=== PATIENT | female | born 1995 | race Caucasian/White ===

== ENCOUNTER → 2019-10-17 10:47 | Outpatient (BNVA) | payer OTHER, SELFPAY | PROVIDERS: Family Provider Family Medicine; PCP Family Medicine; Visit Provider Nurse Practitioner | DX: M25.519 Pain in unspecified shoulder (principal) | CPT/HCPCS: 73030 ==

== ENCOUNTER 2019-10-27 14:36 | Outpatient (RCR) | payer OTHER, SELFPAY | END 2019-11-11 23:59 | disposition home or self-care (01) | LOC: SPT 14:36 | PROVIDERS: Family Provider Family Medicine; PCP Family Medicine; Referring Provider Family Medicine; Visit Provider Family Medicine | DX: S43.422D Sprain of left rotator cuff capsule, subsequent encounter (principal); X58.XXXD Exposure to other specified factors, subsequent encounter | CPT/HCPCS: 97110; 97161; 97530 ==

== ENCOUNTER 2019-11-12 06:00 | Outpatient (RCR) | payer OTHER, SELFPAY | END 2019-12-10 23:59 | disposition home or self-care (01) | LOC: SPT 06:00 | PROVIDERS: Family Provider Family Medicine; PCP Family Medicine; Referring Provider Family Medicine; Visit Provider Family Medicine | DX: S43.422D Sprain of left rotator cuff capsule, subsequent encounter (principal); X58.XXXD Exposure to other specified factors, subsequent encounter | CPT/HCPCS: 97110 ==

== ENCOUNTER 2019-12-21 11:25 | Outpatient (CLI) | payer OTHER, SELFPAY ==
--- NOTE | 2019-12-21 11:35 | XR_ITS ---
WS: [id number] RIGHT SHOULDER: 3 VIEW(S) TECHNIQUE: Internal and external rotation with Y view. HISTORY: right shoulder injury COMPARISON: None available. No fracture or dislocation or soft tissue abnormality. Glenohumeral and AC joints are unremarkable. XR/XR shoulder RT min 2V* [id number] IMPRESSION: Normal RIGHT shoulder.
== END 2019-12-21 11:26 | disposition home or self-care (01) ==
LOC: RADWPI 11:27
PROVIDERS: Family Provider Family Medicine; PCP Family Medicine; Visit Provider Family Medicine
DX: S43.401A Unspecified sprain of right shoulder joint, initial encounter (principal); X58.XXXA Exposure to other specified factors, initial encounter
CPT/HCPCS: 73030

== ENCOUNTER 2019-12-28 12:31 | Outpatient (RCR) | payer OTHER, SELFPAY | END 2020-01-10 23:59 | disposition home or self-care (01) | LOC: SPT 12:31 | PROVIDERS: Family Provider Family Medicine; PCP Family Medicine; Referring Provider Family Medicine; Visit Provider Family Medicine | DX: S43.401D Unspecified sprain of right shoulder joint, subsequent encounter (principal); X58.XXXD Exposure to other specified factors, subsequent encounter | CPT/HCPCS: 97161 ==

== ENCOUNTER → 2020-06-11 08:15 | Day surgery (SDC) | payer MEDICAID, SELFPAY ==
[2020-06-11 08:30] VITALS: BP 104/60; PULSE 66; RESP 18; TEMP 36.2; O2SAT 99
[2020-06-11 09:52] VITALS: BP 144/97; PULSE 78; RESP 18; TEMP 36.4; O2SAT 99
== END ==
PROVIDERS: PCP Family Medicine; Visit Provider Family Medicine
DX: O26.899 Other specified pregnancy related conditions, unspecified trimester (principal); Z67.91 Unspecified blood type, Rh negative
CPT/HCPCS: 86850; 86900; 90384; 96372

== ENCOUNTER 2020-06-13 14:45 | Outpatient (CLI) | payer MEDICAID, SELFPAY ==
[2020-06-13 14:45] VITALS: BMI 22.4
[2020-06-13 15:41] VITALS: BP 99/62
[2020-06-13 15:42] VITALS: PULSE 81
== END 2020-06-13 15:49 | disposition home or self-care (01) ==
LOC: OPOB 14:50 → OBGYN 14:51
PROVIDERS: PCP Family Medicine; Visit Provider Family Medicine
DX: O36.8190 Decreased fetal movements, unspecified trimester, not applicable or unspecified (principal)
CPT/HCPCS: 59025; 99211

== ENCOUNTER 2020-08-27 11:45 | Outpatient (CLI) | payer MEDICAID, SELFPAY ==
[2020-08-27 11:45] VITALS: TEMP 36.7
[2020-08-27 11:54] VITALS: BP 127/70; PULSE 83
[2020-08-27 11:59] VITALS: BMI 23.9
[2020-08-27 12:14] VITALS: BP 106/69; PULSE 69
[2020-08-27 12:15] LABS: Nitrazine Paper, PH Negative
[2020-08-27 12:19] VITALS: BP 106/69; PULSE 69; RESP 18; TEMP 36.7
== END 2020-08-27 12:25 | disposition home or self-care (01) ==
LOC: OBGYN 12:18 → OPOB 08-28 08:52
PROVIDERS: PCP Family Medicine; Visit Provider Family Medicine
DX: O26.899 Other specified pregnancy related conditions, unspecified trimester (principal)
CPT/HCPCS: 59025; 83986; 99211; G0378; G0379

== ENCOUNTER 2020-08-31 00:06 | Inpatient (IN) | payer MEDICAID, SELFPAY ==
[2020-08-30 21:01] VITALS: BMI 23.9
[2020-08-30 21:35] VITALS: TEMP 36.8
[2020-08-30] MEDS: dextrose 5%-lactated ringers 1,000 ML 125 ML IV (22:03)
[2020-08-30] MEDS: oxytocin 30 UNIT/500 ML BAG IV (22:04)
[2020-08-30 23:23] LABS: Amphetamines Screen Urine Negative (Negative); Barbiturates Screen Urine Negative (Negative); Benzodiazepines Screen Urine Negative (Negative); Cocaine Screen Urine Negative (Negative); Opiate Screen Urine Negative (Negative); PCP Screen Urine Negative (Negative); THC Screen Urine Negative (Negative)
[2020-08-31] VITALS (18 sets, daily range): BP systolic 0–137; BP diastolic 0–84; PULSE 66–118; RESP 16–18; TEMP 36.7–36.9; O2SAT 98
[2020-08-31] MEDS: fentaNYL 50 mcg/mL INJ 2mL IV (05:33)
[2020-08-31] MEDS: lactated ringers 1,000 ML 999 ML IV (05:40)
[2020-08-31 06:04] LABS: Basophils % 0.3 %; Eosinophils # 0.1 10^3/uL (0.0-0.8); Eosinophils % 0.7 %; Hematocrit 36.7 % (37.0-47.0); Hemoglobin 12.2 g/dL (11.5-15.3); Lymphocytes # 2.7 10^3/uL (0.8-4.8); Lymphocytes % 22.9 %; Mean Corpuscular HGB Conc 33.2 g/dL (30.0-36.0); Mean Corpuscular Hemoglobin 32.5 pg (28.0-34.0); Mean Corpuscular Volume 97.9 fL (81-99); Mean Platelet Volume 10.9 fL (7.4-10.4); Monocytes # 1.1 10^3/uL (0.2-0.9); Neutrophils # 7.78 10^3/uL (1.8-7.7); Neutrophils % 66.7 %; Nucleated Red Blood Cells % 0 %; Platelet Count 212 10^3/cmm (130-400); Red Blood Count 3.75 10^6/uL (4.1-5.3); Red Cell Distribution Width 12.4 % (12.1-15.1); White Blood Count 11.7 10^3/uL (4.0-10.0)
--- NOTE | 2020-08-31 06:56 | P.PCNOB_ITS ---
Delivery Note: Date of delivery: August 31, 2020 Pre-Delivery Course: The patient had routine care during her . She started care with Dr. Singleton but transferred to my care at about 17 weeks gestation. She was blood type A- and received RhoGam around 28 weeks gestation. At that time she admitted to smoking marijuana at bedtime and I recommended that she stop. Her other labs were within normal limits. Her RPR was nonreactive hepatitis B surface antigen negative GC chlamydia negative, she passed her 1 hour glucose tolerance test, she was GBS negative and Covid negative. Delivery: This is a 25-year-old at 39 weeks 4 days gestation who presented for an elective induction. The patient cervix was favorable and she was started on Pitocin. The patient's labor progressed well on its own and she was relatively comfortable until approximately 6 cm dilation. At that point her labor progressed precipitously. She had spontaneous rupture of membranes with clear fluid noted less than 30 minutes prior to delivery. Less than 45min after being 6 cm she delivered via normal spontaneous vaginal delivery. She had a viable female weight 2690 g, 5 pounds 15 ounces, Apgars 8 and 10 over an intact perineum. The infant was suctioned at delivery and placed on the mother's chest. The cord was clamped and cut. The placenta was delivered grossly intact and normal to inspection. There were no lacerations. Estimated blood loss 150 mL. Mother and infant were doing well. A&P Assessment and plan (1) Normal vaginal delivery: Status: Acute Coding Level of Care Code Acute Lead Warehouse Associate for Anand Rey Diagnoses Normal vaginal delivery O80
[2020-08-31] MEDS: docusate sodium 100 mg Capsule PO ×2 (09:04→17:02)
[2020-08-31] MEDS: ibuprofen 800 mg tablet PO ×3 (09:04→22:28)
[2020-08-31] MEDS: lanolin oint 7 gm 1 APPLIC TOPICAL (09:04)
[2020-08-31] MEDS: prenatal vitamin Capsule 1 CAP PO (09:04)
--- NOTE | 2020-08-31 09:15 | PC.NURSE ---
Pt and all belongings transferred to room 205. Pt and oriented to room, no questions or concerns noted. WIll continue to monitor.
--- NOTE | 2020-08-31 11:02 | ANES.PREANE2 ---
Pre-Anesthetic Assessment Pre-Anesthetic Assessment: Height/Weight: Height 1.57 m Weight 59.421 kg Temp Pulse Resp BP 98.3 F 90 16 111/68 08/31/20 02:50 08/31/20 08:58 08/31/20 05:33 08/31/20 08:58 Proposed Procedure: Operation Date: 09/01/20 08:00 Proposed Procedures p Bilateral Tubal Ligation(Bilateral) - Edda Murillo MD Familial anesthetic complications: None Social: Social History: No alcohol and No tobacco Exam: Pre-Anes Outpt Exam: alert, oriented x 3, clear to auscultation bilaterally and regular rate & rhythm Airway: Cervical ROM: WNL MP: 2 Dentition: Full Anesthetic Plan: ASA status: 1 Anesthesia: General Risk of > 500 ml blood loss (7ml/kg in children): No Meds/Allergies Current Medications: Current Medications Generic Name Dose Route Start Last Admin Trade Name Freq PRN Reason Stop Dose Admin Docusate Sodium 100 mg 08/31/20 09:00 08/31/20 09:04 Docusate Sodium 100 Mg Capsule PO 100 mg BID DIONICIO Administration Ibuprofen 800 mg 08/31/20 09:00 08/31/20 09:04 Ibuprofen 800 Mg Tablet PO 800 mg TID DIONICIO Administration Lanolin 1 applic 08/31/20 07:50 08/31/20 09:04 Lanolin Oint 7 G m TOPICAL 1 tube PRN PRN Administration DRYNESS Multivit/ Folic Acid/Iron 1 cap 08/31/20 09:00 08/31/20 09:04 Vitamin Capsule PO 1 cap DAILY DIONICIO Administration PFSH Anesthesia PFSH: Social History Smoking and tobacco status: current every day smoker Alcohol intake: current Alcohol intake frequency: holidays/special occasions only Alcohol type: wine [place]: [employer] [place] Female Reproductive History: : 4 Data Anesthesia CBC & Chem 7: 08/30/20 21:17 Other Labs: Laboratory Results - last 48 hr 08/30/20 08/30/20 20:10 21:17 WBC 11.7 H RBC 3.75 L Hgb 12.2 Hct 36.7 L MCV 97.9 MCH 32.5 MCHC 33.2 RDW 12.4 Plt Count 212 MPV 10.9 H Neut % (Auto) 66.7 Lymph % (Auto) 22.9 [place] % (Auto) 9.0 Eos % (Auto) 0.7 Baso % (Auto) 0.3 Neut # (Auto) 7.78 H Lymph # (Auto) 2.7 [place] # (Auto) 1.1 H Eos # (Auto) 0.1 Baso # (Auto) 0.0 Nucleated RBC % (auto) 0 Nucleated RBCs # 0.0 Urine Opiates Screen Negative Ur Barbiturates Screen Negative Ur Phencyclidine Scrn Negative Ur Amphetamines Screen Negative U Benzodiazepines Scrn Negative Urine Cocaine Screen Negative U Marijuana (THC) Screen Negative Cardiac Studies: No Data to Display
[2020-08-31 19:26] LABS: Hematocrit 33.9 % (37.0-47.0); Hemoglobin 11.4 g/dL (11.5-15.3); Mean Corpuscular HGB Conc 33.6 g/dL (30.0-36.0); Mean Corpuscular Hemoglobin 32.9 pg (28.0-34.0); Mean Platelet Volume 9.8 fL (7.4-10.4); Platelet Count 185 10^3/cmm (130-400); Red Blood Count 3.46 10^6/uL (4.1-5.3); Red Cell Distribution Width 12.4 % (12.1-15.1); White Blood Count 13.9 10^3/uL (4.0-10.0)
--- NOTE | 2020-08-31 19:51 | PC.NURSE ---
drawn by Jovana Merchant RN
[2020-09-01] VITALS (11 sets, daily range): BP systolic 107–142; BP diastolic 74–90; PULSE 67–124; RESP 12–18; TEMP 36.6–37; O2SAT 97–100
--- NOTE | 2020-09-01 07:22 | PC.NURSE ---
Patient taken to OR via OR nurse at this time.
--- NOTE | 2020-09-01 07:43 | ANES.PAUD2 ---
Pre-Anesthetic Update Pre-Anesthetic Assessment: Date of Surgery/Procedure: 09/01/20 Proposed Procedure: Operation Date: 09/01/20 08:00 Proposed Procedures p Bilateral Tubal Ligation(Bilateral) - Edda Murillo MD Any changes to Pre-Anesthetic Assessment?: No Labs Last 48hrs: Laboratory Results - last 48 hr 08/30/20 08/30/20 08/31/20 20:10 21:17 19:10 WBC 11.7 H 13.9 H RBC 3.75 L 3.46 L Hgb 12.2 11.4 L Hct 36.7 L 33.9 L MCV 97.9 98.0 MCH 32.5 32.9 MCHC 33.2 33.6 RDW 12.4 12.4 Plt Count 212 185 MPV 10.9 H 9.8 Neut % (Auto) 66.7 Lymph % (Auto) 22.9 [place] % (Auto) 9.0 Eos % (Auto) 0.7 Baso % (Auto) 0.3 Neut # (Auto) 7.78 H Lymph # (Auto) 2.7 [place] # (Auto) 1.1 H Eos # (Auto) 0.1 Baso # (Auto) 0.0 Nucleated RBC % (a uto) 0 Nucleated RBCs # 0.0 Urine Opiates Scre en Negative Ur Barbiturates Sc reen Negative Ur Phencyclidine S crn Negative Ur Amphetamines Sc reen Negative U Benzodiazepines Scrn Negative Urine Cocaine Scre en Negative U Marijuana (THC) Screen Negative Vitals: Temperature 97.9 F 09/01/20 04:40 Temperature Source Oral 09/01/20 04:40 Pulse Rate 74 09/01/20 04:40 Pulse Rhythm 08/30/20 21:01 Pulse Strength 3+ Normal 08/30/20 21:01 Respiratory Rate 18 09/01/20 04:40 Respiratory Effort 08/30/20 21:01 Respiratory Depth Normal 08/30/20 21:01 Respiratory Patter n 08/30/20 21:01 Blood Pressure 128/78 09/01/20 04:40 Blood Pressure Koki n 94 09/01/20 04:40 Blood Pressure Pos ition Semi Fowlers 09/01/20 04:40 Pulse Oximetry 98 09/01/20 04:40 Oxygen Delivery Me thod 09/01/20 04:40 Exam: Pre-Anes Outpt Exam: alert, oriented x 3, clear to auscultation bilaterally and regular rate & rhythm Cardiac Studies: No Data to Display
[2020-09-01] MEDS: sodium chloride 0.9% 1,000 ML 30 ML IV (08:00)
--- NOTE | 2020-09-01 08:02 | P.HP_ITS ---
Providers/Chief Complaint Admitting Physician: Edda Murillo MD Primary Care Provider: Meri Bowie MD Chief Complaint: Scheduled Induction History of Present Illness Ayde Dunbar is a 25 year old female who had a normal spontaneous vaginal delivery yesterday and is requesting bilateral tubal ligation Review of Systems Const: Denies: fever(s) or chills Eyes: Denies: change in vision ENMT: Denies: throat pain or nasal discharge Card: Denies: chest pain, palpitations or irregular heart rhythm Resp: Denies: dyspnea or productive cough GI: Denies: abdominal pain (Some uterine cramping with breast-feeding), nausea or vomiting : Reports: vaginal bleeding (Average ); Denies: flank pain Musc: Denies: neck pain or back pain Neuro: Denies: numbness in extremities or weakness in extremities Psych: Denies: anxiety or depression Medications/Allergies Home Medications Medication Instructions Recorded Confirmed Last Taken Type PNV,calcium [id number] acid 1 tab PO DAILY 06/11/20 06/11/20 06/11/20 History [ Vitamin Plus Low Iron] sertraline 50 mg PO DAILY 06/11/20 06/11/20 06/11/20 History Allergies Allergy/AdvReac Type Severity Reaction Status Date / Time No Known Allergies Allergy Verified 06/11/20 08:47 PFSH Acute PFSH: Social History Smoking and tobacco status: current every day smoker Alcohol intake: current Alcohol intake frequency: holidays/special occasions only Alcohol type: wine Current occupation: [employer] [place] [employer] [place] Female Reproductive History: : 4 Para: 3 Spontaneous abortions: Yes (1) Other female reproductive history: x3 Vitals/I&O/Wt Last Vital Signs Temp 97.9 F 09/01/20 04:40 Pulse 74 09/01/20 04:40 Resp 18 09/01/20 04:40 BP 128/78 09/01/20 04:40 Pulse Ox 98 09/01/20 04:40 Weight last 48 hrs Weight 131 lb Physical Exam Const: COMMON NORMALS: no acute distress and alert GENERAL APPEARANCE: co operative and comfortable HENMT: COMMON NORMALS: normocephalic and atraumatic Eye: COMMON NORMALS: Equal, round and reactive pupils present and EOMs intact bilaterally Chest: COMMONS NORMALS: normal inspection of the chest Resp: COMMON NORMALS: normal respiratory effort and No retractions Cardio: COMMON NORMALS: regular rate and regular rhythm GI: INSPECTION: Yes normal to inspection PALPATION: Yes Soft to palpation (Fundus is firm U- 2) and No Tenderness to palpation present (GI) Extremity: GENERAL: No calf tenderness and No edema Neuro: COMMON NORMALS: patient oriented x3 SENSORIUM/ORIENTATION: Yes alert Psych: COMMON NORMALS: cooperative and normal affect Data : 08/31/20 19:10 A&P Assessment and plan (1) Normal vaginal delivery: Status: Acute (2) Encounter for sterilization: Patient is absolutely sure she wants to proceed with permanent surgical sterilization. Status: Acute Attestations Medical Necessity Statement*: Routine surgery and postoperative care Coding Level of Care Code Acute Digital Forensic Examiner for Anand Rey Diagnoses Normal vaginal delivery O80 Encounter for sterilization Z30.2
[2020-09-01] MEDS: fentaNYL 50 mcg/mL INJ 2mL IVP ×2 (08:55→09:00)
--- NOTE | 2020-09-01 09:17 | PM.OP ---
Operative Report Date of procedure: September 01, 2020 Pre-op Diagnosis: Desired permanent surgical sterilization Post-op diagnosis: same Procedure Done: bilateral tubal ligation Specimens removed/disposition: Segments of right and left fallopian tubes Pathology: Segments of right and left fallopian tubes Surgeon: Edda Murillo Anesthesia: General Estimated blood loss (mL): 5 IV fluids (mL): 500 Complications: None Condition: stable Disposition: floor Procedure: After informed consent the patient was taken to the OR where general anesthesia was administered. She was then prepped and draped in normal sterile fashion in dorsal supine position. A curvilinear infraumbilical incision was made sharply with the scalpel and then carried through bluntly to the fascia using a hemostat. The fascia was then grasped with Allis clamps and entered sharply using the Metzenbaums. The peritoneum was then entered bluntly. The left fallopian tube was grasped with a Petra and brought into the operative field. A midportion of the tube was ligated and excised. Tubal ostia were identified. Segment of the tube was sent to pathology. Cut portions of the tube were coagulated using the Bovie and were found to be hemostatic. They were then returned to the abdomen. The right fallopian tube was then grasped with a [place] and brought into the operative field. A midportion of the tube was ligated and excised. Specimen was sent to pathology. Tubal ostia were identified. Cut portions of the tube were coagulated using the Bovie. There was excellent hemostasis and the cut portions of the tube were returned to the abdomen. The peritoneum and fascia was then reapproximated using 0 Vicryl in a running fashion. The skin was then reapproximated using 4-0 Vicryl in a running fashion. Steri-Strips and a pressure bandage were applied and patient went to recovery in stable condition Sponge instrument and needle counts were correct. Associated Problem List Diagnoses (1) Encounter for sterilization:
--- NOTE | 2020-09-01 09:21 | P.DS_ITS ---
Discharge Providers SUPERVISOR HISTOLOGY Date of Admission: 08/31/20 00:06 Date of Discharge: 09/01/20 Attending Provider at Admission: Edda Murillo MD Attending Provider at Discharge: Edda Murillo MD Primary Care Provider: Meri Bowie MD Diagnoses at Discharge Discharge Diagnosis (1) Encounter for sterilization: Status: Acute Reason for Visit Reason for Visit: Scheduled Induction Hospital Course Hospital Course This is a 25-year-old G4 now P3 who was admitted for an elective induction at 39 weeks 5 days gestation. She had a normal spontaneous vaginal delivery of a viable female . Postoperatively mother and infant were doing well. Mother desired permanent surgical sterilization and on day #1 she underwent bilateral tubal ligation. There were no complications during the procedure. She was ambulating, tolerating a regular diet, had good pain control and was comfortable with discharge home. Information Peripartum Data: Infant Delivery Method: Vaginal Physical Exam HENMT: COMMON NORMALS: normocephalic and atraumatic HEAD & SCALP: normocephalic and atraumatic Eye: COMMON NORMALS: Equal, round and reactive pupils present and EOMs intact bilaterally PUPIL: Yes Equal, round and reactive pupils present Resp: COMMON NORMALS: normal respiratory effort Cardio: COMMON NORMALS: regular rate and regular rhythm RATE: regular rate RHYTHM: regular rhythm GI: INSPECTION: Yes incision (Dressing clean dry and intact) Extremity: COMMON NORMALS: no calf tenderness and no pedal edema Discharge Data Data Completed and Pending: Pending at discharge Category Date Time Status Pathology: Surgic al [PTH] Routine Pth 09/01/20 08:46 Ordered Labs from last 24 hours 08/31/20 19:10 WBC 13.9 H RBC 3.46 L Hgb 11.4 L Hct 33.9 L MCV 98.0 MCH 32.9 MCHC 33.6 RDW 12.4 Plt Count 185 MPV 9.8 Vitals: Last Vital Signs Temp 98.4 F 09/01/20 08:50 Pulse 120 H 09/01/20 08:50 Resp 16 09/01/20 09:00 BP 134/90 09/01/20 08:50 Pulse Ox 98 09/01/20 09:00 Discharge Plan Discharge Patient Disposition: Home Condition: Stable Prescriptions: New ibuprofen 800 mg Tablet 800 mg PO TID PRN (Reason: Abdominal Discomfort) Qty: 30 RF: 0 hydrocodone-acetaminophen 5-325 mg Tablet 1 tab PO Q4H PRN (Reason: Moderate To Severe Pain) Qty: 15 RF: 0 Continued sertraline 50 mg tablet 50 mg PO DAILY RF: 0 Vitamin Plus Low Iron 27 mg iron- 1 mg tablet 1 tab PO DAILY RF: 0 Discharge Orders: Discharge Order (Routine); Ordered 09/01/20 Ordered By: Edda Murillo Referrals: Edda Murillo MD [Physician] - 7-10 days Discharge Attestations SUPERVISOR HISTOLOGY Time Spent in Discharge Care*: less than 30 min Coding Level of Care Code Acute Manager Spa for Chg Fwd Exam Detailed Diagnoses Encounter for sterilization Z30.2
[2020-09-01] MEDS: docusate sodium 100 mg Capsule PO (09:48)
[2020-09-01] MEDS: HYDROcodone-acetaminophen 5-325 mg Tablet PO (09:48)
[2020-09-01] MEDS: prenatal vitamin Capsule 1 CAP PO (09:48)
[2020-09-01] MEDS: ibuprofen 800 mg tablet PO (09:49)
--- NOTE | 2020-09-01 09:56 | PC.NURSE ---
Patient brought up from PACU to OB floor at this time.
--- NOTE | 2020-09-01 10:22 | PM.PACU ---
PACU note PACU note: VSS, good respiratory effort Post-Anesthesia Exam: awake Disposition: back to floor
--- NOTE | 2020-09-04 14:14 | PC.RESP ---
SMOKING CESSATION INFORMATION SENT TO PATIENT.
== END 2020-09-01 12:54 | disposition home or self-care (01) | DRG 798 ==
LOC: OBGYN 07:19 → OPOB 08:27 → OBGYN 09-01 09:23
PROVIDERS: Admitting Provider Family Medicine; PCP Family Medicine; Visit Provider Family Medicine
PROC: 0U574ZZ Destruction of Bilateral Fallopian Tubes, Percutaneous Endoscopic Approach (ICD-10-PCS; CPT 58605; principal; 2020-09-01 08:00)
DX: O99.334 Smoking (tobacco) complicating childbirth (principal); Z37.0 Single live birth; F17.210 Nicotine dependence, cigarettes, uncomplicated; Z3A.39 39 weeks gestation of pregnancy; Z30.2 Encounter for sterilization
CPT/HCPCS: 36415; 59025; 59409; 80306; 85025; 85027; 88302; 96374; 98960; J2405; J2704; J2710; J3010; J3490; J7030

== ENCOUNTER 2022-01-12 05:12 | Inpatient (IN) | payer BC, SELFPAY ==
[2022-01-12 05:19] VITALS: BP 113/76; PULSE 105; RESP 18; O2SAT 94; BMI 20.3
[2022-01-12 05:26] VITALS: BP 113/76; PULSE 94; RESP 16; TEMP 37; O2SAT 98
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
[2022-01-12 05:56] LABS: Basophils # 0.1 10^3/uL (0.0-0.1); Basophils % 0.8 %; Eosinophils # 0.1 10^3/uL (0.0-0.8); Eosinophils % 0.8 %; Hematocrit 42.8 % (37.0-47.0); Hemoglobin 14.3 g/dL (11.5-15.3); Lymphocytes # 2.7 10^3/uL (0.8-4.8); Lymphocytes % 35.1 %; Mean Corpuscular HGB Conc 33.4 g/dL (30.0-36.0); Mean Corpuscular Hemoglobin 31.2 pg (28.0-34.0); Mean Corpuscular Volume 93.2 fl (81-99); Mean Platelet Volume 9.2 fL (7.4-10.4); Monocytes # 0.4 10^3/uL (0.2-0.9); Neutrophils % 57.9 %; Nucleated Red Blood Cells % 0 %; Platelet Count 230 10^3/cmm (130-400); Red Blood Count 4.59 10^6/uL (4.1-5.3); White Blood Count 7.6 10^3/uL (4.0-10.0)
[2022-01-12 06:18] LABS: Acetaminophen 17.5 ug/mL (10-30); Alanine Aminotransferase 9 U/L (0-33); Albumin Level 4.9 g/dL (3.5-5.2); Alcohol Level 168 mg/dL (0-10); Alkaline Phosphatase 58 IU/L (35-105); Anion Gap 15.8 (5-19); Aspartate Amino Transferase 15 U/L (0-32); Blood Urea Nitrogen 10 mg/dL (6-20); Calcium 9.5 mg/dL (8.5-10.5); Carbon Dioxide 22 mmol/L (22-29); Chloride 107 mmol/L (98-107); Globulin 2.4 g/dL (1.3-4.6); Glomerular Filtration Rate 101.1 mL/min (90-130); Glucose 107 mg/dL (65-115); Osmolality Calculated 292 mOsm/kg (285-295); Potassium 3.8 mmol/L (3.5-5.1); Sodium 141 mmol/L (136-145); Total Bilirubin 0.2 mg/dL (0.15-1.2); Total Protein 7.3 g/dL (6.6-8.7)
[2022-01-12 06:19] LABS: Salicylate < 0.3 mg/dL (3-10)
[2022-01-12 06:32] LABS: Add Urine Microscopic? NO; Charge for UA Resulting for Rev
[2022-01-12 06:43] LABS: Bilirubin Urine Neg (Negative); Blood Urine Neg (Negative); Glucose Urine UA Norm (Normal); HCG Qualitative Urine. Negative (Negative); Ketones Urine Negative (Negative); Nitrate Urine Negative (Negative); Protein Urine Neg (Negative); Specific Gravity, Urine 1.015 (1.005-1.030); Urine Appearance Clear (CLEAR); Urine Color Straw (Yellow); pH Urine 5 (5-7)
[2022-01-12 06:44] LABS: Leukocyte Esterase Urine Negative (Negative); Urobilinogen Urine Norm (Negative)
[2022-01-12 07:28] LABS: Amphetamines Screen Urine Negative (Negative); Barbiturates Screen Urine Negative (Negative); Benzodiazepines Screen Urine Negative (Negative); Cocaine Screen Urine Negative (Negative); Opiate Screen Urine Negative (Negative); PCP Screen Urine Negative (Negative); THC Screen Urine Negative (Negative)
[2022-01-12 07:30] VITALS: BP 91/65; PULSE 87; RESP 16; TEMP 36.7; O2SAT 96
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
[2022-01-12] MEDS: multivitamin therapeutic Tablet 1 TAB PO (09:55)
[2022-01-12] MEDS: thiamine 100 mg Tablet PO (09:55)
[2022-01-12] MEDS: folic acid 1 mg Tablet PO (09:55)
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
[2022-01-12] MEDS: venlafaxine ER (24HR) 75 mg Capsule PO (11:31)
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
[2022-01-12] MEDS: acetaminophen 325 mg Tablet 650 MG PO (12:44)
--- NOTE | 2022-01-12 13:50 | PC.NURSE ---
NEW Orders New orders received to increase Buspar to 15 mg TID, Start Prozac 20 Mg today and then daily and Decrease Effexor ER to 37.5 mg for 7 days. Orders placed, patient notified.
[2022-01-12 14:00] VITALS: BP 94/86; PULSE 65; RESP 16; TEMP 36.8; O2SAT 97
[2022-01-12] MEDS: fluoxetine 20 mg Capsule PO (14:00)
[2022-01-12] MEDS: BuSPIRONE 10 mg Tablet 15 MG PO ×2 (14:02→20:14)
[2022-01-12 20:11] VITALS: BP 97/59; PULSE 86; RESP 16; TEMP 36.9; O2SAT 96
[2022-01-13 06:00] VITALS: BP 93/60; PULSE 72; RESP 16; TEMP 36.5; O2SAT 98
[2022-01-13] MEDS: fluoxetine 20 mg Capsule PO (09:02)
[2022-01-13] MEDS: venlafaxine ER (24HR) 37.5 mg Capsule PO (09:02)
[2022-01-13] MEDS: folic acid 1 mg Tablet PO (09:02)
[2022-01-13] MEDS: BuSPIRONE 10 mg Tablet 15 MG PO ×2 (09:02→13:48)
[2022-01-13] MEDS: thiamine 100 mg Tablet PO (09:02)
[2022-01-13] MEDS: multivitamin therapeutic Tablet 1 TAB PO (09:02)
[2022-01-13] MEDS: acetaminophen 325 mg Tablet 650 MG PO (13:48)
[2022-01-13 14:00] VITALS: BP 97/60; PULSE 76; RESP 16; TEMP 36.7; O2SAT 99
--- NOTE | 2022-01-13 16:34 | PC.SOCIAL ---
Patient did not attend group.
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
[2022-01-13 17:10] VITALS: BP 97/60; PULSE 76; RESP 16; TEMP 36.7; O2SAT 99
== END 2022-01-13 17:29 | disposition home or self-care (01) | DRG 885 ==
LOC: ER 06:15 → NP 07:35
PROVIDERS: Admitting Provider Psychiatry & Neurology Psychiatry; Emergency Provider Emergency Medicine; PCP Family Medicine; Visit Provider Psychiatry & Neurology Psychiatry
DX: F33.9 Major depressive disorder, recurrent, unspecified (principal); R45.851 Suicidal ideations; F43.10 Post-traumatic stress disorder, unspecified; Z63.0 Problems in relationship with spouse or partner; Z62.810 Personal history of physical and sexual abuse in childhood; F17.290 Nicotine dependence, other tobacco product, uncomplicated
CPT/HCPCS: 80053; 80306; 80307; 81003; 81025; 85025; 97165; 99285

== ENCOUNTER 2022-03-23 02:18 | Inpatient (IN) | payer BC, SELFPAY ==
[2022-03-23 02:22] VITALS: BP 111/66; PULSE 93; RESP 18; TEMP 36.8; O2SAT 99
--- NOTE | 2022-03-23 02:27 | W.ED.PSYCHS ---
HPI - Psych General: Chief Complaint: Psychiatric Symptoms Stated Complaint: SI/ETOH Time Seen by Provider: 03/23/22 02:20 Source: patient and EMS Mode of arrival: EMS Limitations: no limitations History of Present Illness: 26-year-old female has a history of depression. She states that she is currently going through divorce causing her increased stress and depression she states she has been drinking alcohol tonight and got a razor blade and attempted to kill herself by cutting her arms. She does have very superficial lacerations to both arms. She states that she just no longer wants to live denies any worsening improving factors. She denies taking any drugs or pills. Associated symptoms: Reports depression and suicidal ideation Review of Systems Const: Denies: fever(s), chills, body aches or change in appetite Eyes: Denies: blurry vision or eye discomfort ENMT: Denies: throat pain or dental pain Card: Denies: chest pain Resp: Denies: dyspnea GI: Denies: abdominal pain, nausea, vomiting or diarrhea : Denies: dysuria Musc: Denies: neck pain or back pain Skin/Breast: Denies: rash Neuro: Denies: headache(s) Psych: Reports: depression and suicidal ideation Albaro/Lymph: Denies: easy bruising All/Imm: Denies: urticaria PFSH ED PFSH: Medical History MDD (major depressive disorder), recurrent episode Social History Smoking and tobacco status: current every day smoker Alcohol intake: current Alcohol intake frequency: holidays/special occasions only Alcohol type: wine Current occupation: [employer] [place] [employer] department Female Reproductive History: Para: 3 Spontaneous abortions: Yes (1) Physical Exam Const: COMMON NORMALS: patient oriented x3 and healthy appearing HENMT: COMMON NORMALS: normocephalic and atraumatic HEAD & SCALP: normocephalic and atraumatic Eye: COMMON NORMALS: Equal, round and reactive pupils present and EOMs intact bilaterally PUPIL: Yes Equal, round and reactive pupils present Neck/C-Spine: COMMON NORMALS: full ROM and supple Chest: COMMONS NORMALS: normal inspection of the chest and normal palpation of entire chest wall Resp: COMMON NORMALS: normal respiratory effort, No retractions, No use of accessory muscles and clear to auscultation bilaterally AUSCULTATION: clear to auscultation bilaterally Cardio: COMMON NORMALS: regular rate, regular rhythm and No murmurs present (Cardio) RATE: regular rate RHYTHM: regular rhythm GI: COMMON NORMALS: Normal to inspection, nondistended, normoactive bowel sounds present, Soft to palpation, non-tender and no masses PALPATION: Yes Soft to palpation Extremity: COMMON NORMALS: full ROM NARRATIVE EXTREMITY EXAM: Bilateral superficial lacerations to both arms no bleeding at this time Neuro: COMMON NORMALS: patient oriented x3, moves all extremities and no focal motor deficits Psych: COMMON NORMALS: mental status grossly normal, Normal thought process present and cooperative MOOD & AFFECT: Yes depressed mood THOUGHT PROCESS: Normal thought process present THOUGHT CONTENT: Yes Suicidality present Skin: COMMON NORMALS: no rashes or lesions noted GENERAL SKIN EXAM: no rashes or lesions noted Course Vital Signs: Vital signs: Vital Signs Temperature 98.2 F 03/23/22 02:22 Pulse Rate 93 03/23/22 02:22 Respiratory Rate 18 03/23/22 02:22 Blood Pressure 111/66 03/23/22 02:22 Pulse Oximetry 99 03/23/22 02:22 MDM - Psych Medical Decision Making Patient presents here with mild intoxication along with a suicide attempt patient is suicidal and depressed her lacerations are superficial did not require any sutures patient is medically cleared and will admit to the psychiatric unit. Lab Data : 03/23/22 02:33 03/23/22 02:33 Laboratory Results WBC 9.4 10^3/uL (4.0-10.0) 03/23/22 02:33 RBC 4.40 10^6/uL (4.1-5.3) 03/23/22 02:33 Hgb 13.6 g/dL (11.5-15.3) 03/23/22 02:33 Hct 38.8 % (37.0-47.0) 03/23/22 02:33 MCV 88.2 fl (81-99) 03/23/22 02:33 MCH 30.9 pg (28.0-34.0) 03/23/22 02:33 MCHC 35.1 g/dL (30.0-36.0) 03/23/22 02:33 RDW 11.9 % (12.1-15.1) L 03/23/22 02:33 Plt Count 262 10^3/cmm (130-400) 03/23/22 02:33 MPV 9.2 fL (7.4-10.4) 03/23/22 02:33 Neut % (Auto) 54.5 % 03/23/22 02:33 Lymph % (Auto) 39.1 % 03/23/22 02:33 [place] % (Auto) 4.7 % 03/23/22 02:33 Eos % (Auto) 0.9 % 03/23/22 02:33 Baso % (Auto) 0.6 % 03/23/22 02:33 Neut # (Auto) 5.11 10^3/uL (1.8-7.7) 03/23/22 02:33 Lymph # (Auto) 3.7 10^3/uL (0.8-4.8) 03/23/22 02:33 [place] # (Auto) 0.4 10^3/uL (0.2-0.9) 03/23/22 02:33 Eos # (Auto) 0.1 10^3/uL (0.0-0.8) 03/23/22 02:33 Baso # (Auto) 0.1 10^3/uL (0.0-0.1) 03/23/22 02:33 Nucleated RBC % (auto) 0 % 03/23/22 02:33 Nucleated RBCs # 0.0 /100WBC 03/23/22 02:33 Sodium 142 mmol/L (136-145) 03/23/22 02:33 Potassium 3.7 mmol/L (3.5-5.1) 03/23/22 02:33 Chloride 111 mmol/L (98-107) H 03/23/22 02:33 Carbon Dioxide 17 mmol/L (22-29) L 03/23/22 02:33 Anion Gap 17.7 (5-19) 03/23/22 02:33 BUN 8 mg/dL (6-20) 03/23/22 02:33 Creatinine 0.7 mg/dL (0.5-0.9) 03/23/22 02:33 GFR Calculation 101.1 mL/min (90-130) 03/23/22 02:33 Glucose 99 mg/dL (65-115) 03/23/22 02:33 Calculated Osmolality 292 mOsm/kg (285-295) 03/23/22 02:33 Calcium 8.5 mg/dL (8.5-10.5) 03/23/22 02:33 Total Bilirubin 0.2 mg/dL (0.15-1.2) 03/23/22 02:33 AST 14 U/L (0-32) 03/23/22 02:33 ALT 9 U/L (0-33) 03/23/22 02:33 Alkaline Phosphatase 55 IU/L (35-105) 03/23/22 02:33 Total Protein 7.7 g/dL (6.6-8.7) 03/23/22 02:33 Albumin 4.5 g/dL (3.5-5.2) 03/23/22 02:33 Globulin 3.2 g/dL (1.3-4.6) 03/23/22 02:33 HCG, Qual Negative (Negative) 03/23/22 03:00 Salicylates < 0.3 mg/dL (3-10) L 03/23/22 02:33 Urine Opiates Screen Negative ng/mL (Negative) 03/23/22 03:00 Acetaminophen < 5.0 ug/mL (10-30) L 03/23/22 02:33 Ur Barbiturates Screen Negative ng/mL (Negative) 03/23/22 03:00 Ur Phencyclidine Scrn Negative ng/mL (Negative) 03/23/22 03:00 Ur Amphetamines Screen Negative ng/mL (Negative) 03/23/22 03:00 U Benzodiazepines Scrn Negative ng/mL (Negative) 03/23/22 03:00 Urine Cocaine Screen Negative ng/mL (Negative) 03/23/22 03:00 U Marijuana (THC) Screen Negative ng/mL (Negative) 03/23/22 03:00 Ethyl Alcohol 239 mg/dL (0-10) H 03/23/22 02:33 Discharge Plan Discharge Patient Disposition: Admitted As Inpatient Clinical Impression: Suicidal ideation, Alcohol intoxication Condition: Stable Coding Level of Care Code ED Trailer Assembler for Anand Fwd Exam Comprehensive
[2022-03-23 02:39] LABS: Basophils # 0.1 10^3/uL (0.0-0.1); Basophils % 0.6 %; Eosinophils # 0.1 10^3/uL (0.0-0.8); Eosinophils % 0.9 %; Hematocrit 38.8 % (37.0-47.0); Hemoglobin 13.6 g/dL (11.5-15.3); Lymphocytes # 3.7 10^3/uL (0.8-4.8); Lymphocytes % 39.1 %; Mean Corpuscular HGB Conc 35.1 g/dL (30.0-36.0); Mean Corpuscular Hemoglobin 30.9 pg (28.0-34.0); Mean Corpuscular Volume 88.2 fl (81-99); Mean Platelet Volume 9.2 fL (7.4-10.4); Monocytes # 0.4 10^3/uL (0.2-0.9); Monocytes % 4.7 %; Neutrophils # 5.11 10^3/uL (1.8-7.7); Neutrophils % 54.5 %; Nucleated Red Blood Cells % 0 %; Platelet Count 262 10^3/cmm (130-400); Red Cell Distribution Width 11.9 % (12.1-15.1); White Blood Count 9.4 10^3/uL (4.0-10.0)
[2022-03-23 02:59] LABS: Alanine Aminotransferase 9 U/L (0-33); Albumin Level 4.5 g/dL (3.5-5.2); Alcohol Level 239 mg/dL (0-10); Alkaline Phosphatase 55 IU/L (35-105); Anion Gap 17.7 (5-19); Aspartate Amino Transferase 14 U/L (0-32); Blood Urea Nitrogen 8 mg/dL (6-20); Calcium 8.5 mg/dL (8.5-10.5); Carbon Dioxide 17 mmol/L (22-29); Chloride 111 mmol/L (98-107); Globulin 3.2 g/dL (1.3-4.6); Glomerular Filtration Rate 101.1 mL/min (90-130); Glucose 99 mg/dL (65-115); Osmolality Calculated 292 mOsm/kg (285-295); Potassium 3.7 mmol/L (3.5-5.1); Sodium 142 mmol/L (136-145); Total Bilirubin 0.2 mg/dL (0.15-1.2); Total Protein 7.7 g/dL (6.6-8.7)
[2022-03-23 03:02] LABS: Acetaminophen < 5.0 ug/mL (10-30); Salicylate < 0.3 mg/dL (3-10)
[2022-03-23 03:10] LABS: HCG Qualitative Urine. Negative (Negative)
[2022-03-23 03:18] LABS: Amphetamines Screen Urine Negative (Negative); Barbiturates Screen Urine Negative (Negative); Benzodiazepines Screen Urine Negative (Negative); Cocaine Screen Urine Negative (Negative); Opiate Screen Urine Negative (Negative); PCP Screen Urine Negative (Negative); THC Screen Urine Negative (Negative)
[2022-03-23 04:00] VITALS: BP 111/66; PULSE 93; RESP 18; TEMP 36.8; O2SAT 99
[2022-03-23 04:12] VITALS: BP 107/57; PULSE 91; RESP 18; TEMP 36.8; O2SAT 96
[2022-03-23 04:25] VITALS: BMI 19.4
[2022-03-23 04:28] VITALS: BMI 19.4
[2022-03-23 04:30] VITALS: BP 107/57; PULSE 91; RESP 18; TEMP 36.8; O2SAT 96
[2022-03-23] MEDS: acetaminophen 325 mg Tablet 650 MG PO (04:35)
--- NOTE | 2022-03-23 05:10 | PC.NURSE ---
PER ER 26-year-old female has a history of depression. She states that she is currently going through divorce causing her increased stress and depression she states she has been drinking alcohol tonight and got a razor blade and attempted to kill herself by cutting her arms. She does have very superficial lacerations to both arms. She states that she just no longer wants to live denies any worsening improving factors. She denies taking any drugs or pills. Associated symptoms: Reports depression and suicidal ideation NPU- UPON ADMISSION PT IS COOPERATIVE, TIRED, REPORTS SEVERE PAIN FROM SUPERFICIAL CUTS TO BILATERAL ARMS. DENIES THAT DIVORCE IS REASON FOR THIS ATTEMPT. WHEN ASKED WHAT THE CAUSE OF CURRENT ATTEMPT IS PT STATES SHE IS JUST ALWAYS SUICIDAL. WHEN QUESTIONED FURTHER FOR WHAT CAUSED THIS ATTEMPT PT STATES WORK, THEN STATES STUPID CO WORKERS BUT WILL NOT ELABORATE FURTHER. WHEN ASKED ABOUT CURRENT MEDICATIONS PT STATES THAT HER PCP FELT THEY WERE MAKING HER BORDERLINE WORSE AND HAD HER QUIT ALL MEDS ONE WEEK AGO. REPORTS FEELING WORSE SINCE THEN. STATES ONLY DRINKS OCCASIONALLY- ETOH LEVEL 239 IN ER. UDS NEGATIVE. PT HAS ABSCESS ON LEFT GROIN AREA. STATES THAT SHE HAS BEEN ON ANTIBIOTICS FOR 1 WEEK AND HAS A PROCEDURE ON THE . HAS BANDAID COVERING IT AT THIS TIME. NO REDNESS NOTED AROUND THIS AREA. BANDAIDS PLACED OVER FOREARMS B/L D/T PT COMPLAINT OF PAIN WHEN ANYTHING TOUCHES THEM. FOREARMS HAVE MULTIPLE SUPERFICIAL CUTS THROUGHOUT.
[2022-03-23] MEDS: venlafaxine ER (24HR) 75 mg Capsule PO (09:01)
[2022-03-23] MEDS: BuSPIRONE 10 mg Tablet 15 MG PO ×3 (09:01→20:17)
[2022-03-23] MEDS: folic acid 1 mg Tablet PO (09:01)
[2022-03-23] MEDS: multivitamin therapeutic Tablet 1 TAB PO (09:01)
[2022-03-23] MEDS: thiamine 100 mg Tablet PO (09:01)
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
[2022-03-23 14:00] VITALS: BP 122/78; PULSE 74; RESP 18; TEMP 36; O2SAT 98
[2022-03-23] MEDS: lurasidone 20 mg Tablet PO (16:44)
[2022-03-23 20:15] VITALS: BP 95/55; PULSE 83; RESP 16; TEMP 37.2; O2SAT 97
[2022-03-24 06:00] VITALS: BP 105/63; PULSE 78; RESP 15; TEMP 36.8; O2SAT 97
[2022-03-24] MEDS: folic acid 1 mg Tablet PO (08:11)
[2022-03-24] MEDS: multivitamin therapeutic Tablet 1 TAB PO (08:11)
[2022-03-24] MEDS: thiamine 100 mg Tablet PO (08:11)
[2022-03-24] MEDS: BuSPIRONE 10 mg Tablet 15 MG PO ×3 (08:12→20:14)
[2022-03-24] MEDS: acetaminophen 325 mg Tablet 650 MG PO (08:15)
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
[2022-03-24 14:00] VITALS: BP 98/60; PULSE 68; RESP 16; TEMP 37.1; O2SAT 99
[2022-03-24] MEDS: lurasidone 20 mg Tablet 40 MG PO (16:20)
[2022-03-24 20:05] VITALS: BP 90/61; PULSE 77; RESP 18; TEMP 36.6; O2SAT 94
[2022-03-24] MEDS: trazodone 50 mg Tablet PO (20:26)
[2022-03-25 06:00] VITALS: BP 91/57; PULSE 72; RESP 16; TEMP 36.8; O2SAT 97
[2022-03-25] MEDS: thiamine 100 mg Tablet PO (09:52)
[2022-03-25] MEDS: multivitamin therapeutic Tablet 1 TAB PO (09:52)
[2022-03-25] MEDS: acetaminophen 325 mg Tablet 650 MG PO (09:52)
[2022-03-25] MEDS: BuSPIRONE 10 mg Tablet 15 MG PO ×3 (09:52→20:57)
[2022-03-25] MEDS: folic acid 1 mg Tablet PO (09:53)
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
[2022-03-25 14:00] VITALS: BP 96/63; PULSE 82; RESP 20; TEMP 36.2; O2SAT 96
[2022-03-25] MEDS: lurasidone 20 mg Tablet 40 MG PO (16:16)
[2022-03-25] MEDS: neomycin-poly-bacitracin oint 28 gm 1 APPLIC TOPICAL (16:16)
[2022-03-25] MEDS: OLANZapine 5 mg ODT PO (19:14)
--- NOTE | 2022-03-25 19:14 | PC.NURSE ---
Administered Zyprexa Zydis 5mg for pt experiencing high anxiety.
[2022-03-25 20:32] VITALS: BP 98/58; PULSE 72; RESP 16; TEMP 36.7; O2SAT 100
[2022-03-25] MEDS: trazodone 50 mg Tablet PO (20:57)
[2022-03-26 06:00] VITALS: BP 90/59; PULSE 70; RESP 16; TEMP 36.8; O2SAT 96
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
[2022-03-26] MEDS: BuSPIRONE 10 mg Tablet 15 MG PO (08:51)
[2022-03-26] MEDS: folic acid 1 mg Tablet PO (08:51)
[2022-03-26] MEDS: multivitamin therapeutic Tablet 1 TAB PO (08:51)
[2022-03-26] MEDS: thiamine 100 mg Tablet PO (08:51)
[2022-03-26 08:53] VITALS: BP 90/59; PULSE 70; RESP 16; TEMP 36.8; O2SAT 96
== END 2022-03-26 09:50 | disposition home or self-care (01) | DRG 885 ==
LOC: ER 02:30 → NP 03:48
PROVIDERS: Admitting Provider Psychiatry & Neurology Psychiatry; Emergency Provider Emergency Medicine; PCP Family Medicine; Visit Provider Psychiatry & Neurology Psychiatry
DX: F33.9 Major depressive disorder, recurrent, unspecified (principal); F10.129 Alcohol abuse with intoxication, unspecified; Y90.9 Presence of alcohol in blood, level not specified; F43.10 Post-traumatic stress disorder, unspecified; F60.3 Borderline personality disorder; F17.200 Nicotine dependence, unspecified, uncomplicated
CPT/HCPCS: 80053; 80306; 80307; 81025; 85025; 97150; 97165; 99285

== ENCOUNTER 2022-05-22 05:49 | Day surgery (SDC) | payer BC, MEDICAID, SELFPAY ==
[2022-05-22] VITALS (10 sets, daily range): BP systolic 87–111; BP diastolic 52–77; PULSE 49–77; RESP 16–18; TEMP 36.3–36.8; O2SAT 97–100
--- NOTE | 2022-05-22 06:16 | P.ANESASSM_ITS ---
Pre-Anesthetic Assessment Height/Weight: Height 1.6 m Weight 50.802 kg Preop Diagnosis: Desired permanent surgical sterilization Operation Date: 05/22/22 07:00 Proposed Procedures p Debridement of Perineal Abscess 83846,L02.215(Not Applicable) - Rickey Ames MD Familial anesthetic complications: None Was Beta Ronda taken within 24 hours: N/A Was Clonidine taken within 24 hours: N/A Last intake: 05/21/22 Social Alcohol (Holidays) and Tobacco (Vape) Exam alert, oriented x 3 and regular rate & rhythm Normal respiratory effort Airway Submandibular: within normal limits Cervical ROM: within normal limits Mallampati: Class I Dentition: full History/ROS No significant complaints Pulmonary None reported CV/HEM None reported None reported Hepatic None reported GI None reported Metabolic None reported Musc/skel None reported Left groin abscess Neuropsych Anxiety and Depression Borderline Personality disorder Anesthetic Plan ASA status: 2 Anesthesia: Anesthesia Evaluation, General and MAC Other: We discussed risk and benefits of general anesthesia including PONV, sore throat (sometimes severe), corneal abrasion, positioning and peripheral nerve injuries, life threatening allergic reaction, post operative ICU admission requiring prolonged intubation, aspiration, stroke, heart attack, , and rare incidences of recall. I discussed with the patient risks, goals, and benefits of MAC and general anesthesia. We discussed spectrum of MAC anesthesia including conversion to general as well as possibility of recall of intraoperative stimuli including discomfort/pain. Patient consents to MAC or General pending further discussion with surgeon. Risk of > 500 ml blood loss (7ml/kg in children): No Medications/Allergies Home Medications Medication Instructions Recorded Confirmed Last Taken Type thiamine mononitrate (vit B1) 100 100 mg PO DAILY 30 days #30 tabs 01/13/22 05/22/22 05/21/22 Rx mg tablet (Vitamin B-1 (mononitrate)) citalopram 20 mg tablet (Celexa) 30 mg PO DAILY #45 tabs 05/21/22 05/22/22 05/21/22 Rx hydroxyzine HCl 25 mg tablet 25 mg PO BID PRN itching #60 tabs 05/21/22 05/22/22 05/21/22 Rx trazodone 50 mg tablet 50 mg PO .HS #30 tabs 05/21/22 05/21/22 Unknown Rx Allergies Allergy/AdvReac Type Severity Reaction Status Date / Time No Known Allergies Allergy Verified 05/21/22 11:24 PFSH Anesthesia Medical History Generalized anxiety disorder MDD (major depressive disorder), recurrent episode Other stimulant dependence, in remission Psychiatric care Vapes nicotine containing substance Social History Smoking and tobacco status: current every day smoker e-cigarettes E-Cigarette Details: vaporizer device Alcohol intake: current Alcohol intake frequency: holidays/special occasions only Alcohol type: wine Current occupation: [employer] – [place] [employer] department Female Reproductive History Date of last menstrual period: 02/18/22 Para: 3 Spontaneous abortions: Yes (1) Data Anesthesia Cardiac Studies: No Data to Display
[2022-05-22] MEDS: sodium chloride 0.9% 1,000 ML 30 ML IV (06:28)
--- NOTE | 2022-05-22 06:34 | W.PM.OPSUD ---
Surgery/Procedure H&P Update DATE OF PROCEDURE: May 22, 2022 DATE H&P PERFORMED: 05/06/22 H&P UPDATE INFORMATION: I have reviewed H&P completed within last 30 days PREOP DIAGNOSIS: Recurrent perineal abscess. PLANNED PROCEDURE: Operation Date: 05/22/22 07:00 Proposed Procedures p Debridement of Perineal Abscess 93893,L02.215(Not Applicable) - Rickey Ames MD
[2022-05-22 06:55] LABS: OR HCG Qualitative Urine Negative (Negative)
[2022-05-22] MEDS: ceFAZolin 2,000 MG in sodium chloride 0.9% (plus) 50 ML 100 MG IV (06:58)
[2022-05-22] MEDS: lidocaine 2% INJ 20 mL INJECTION (07:21)
[2022-05-22] MEDS: neomycin-poly-bacitracin oint 28 gm 1 APPLIC TOPICAL (07:21)
--- NOTE | 2022-05-22 07:21 | PM.OP ---
Operative Report Date of procedure: May 22, 2022 Pre-op diagnosis: Preop Diagnosis Recurrent perineal abscess. Post-op diagnosis: Same, with subcutaneous fistula. Procedure done: Exploration and debridement of perineal abscess/fistula. Specimens removed/disposition: None sent. Surgeon: General Surgery Rickey Ames MD Anesthesia: General (By means of a laryngeal mask airway.) Estimated blood loss: 1 mL. Complications: None. Procedure: The patient was brought to the operating room. The perineum was prepped and draped in a sterile fashion. The patient had a small area of erythema/granulation tissue on the left side of the perineum at the location of the previous abscess drainage. She had a firm tract that traveled anteriorly on the left side to a small opening in the skin approximately 2 centimeters away. This tract was unroofed after a small hemostat was sequentially moved down its location. The underlying tissue was sharply and bluntly debrided. No evidence of a remaining abscess was found. The skin was reapproximated with some gaps in between using interrupted, simple sutures of 4-0 nylon. Some quarter-inch Nu Gauze was then placed in between the sutures. Some antibiotic ointment was placed over the wound and a sterile bandage followed. The patient was taken to the recovery room in stable condition postoperatively.
--- NOTE | 2022-05-22 11:14 | ANE.PACU2 ---
Inpatient post-anesthesia follow up: Airway intact: Yes Vital signs: Temperature 98.3 F Pulse Rate 64 Respiratory Rate 18 Blood Pressure 111/64 Pulse Oximetry 98 Oxygen Delivery Me thod Room Air Oxygen Flow Rate 6 Fraction of Inspir ed Oxygen Hydration adequate: Yes Nausea and vomiting: No Pain level: 1 Mental status: Baseline
== END 2022-05-22 09:39 | disposition home or self-care (01) ==
PROVIDERS: Anesthesiology; PCP Family Medicine; Visit Provider Surgery
PROC: (CPT 11042; principal; 2022-05-22 07:00)
DX: L02.215 Cutaneous abscess of perineum (principal)
CPT/HCPCS: 11042; 81025; 84703; J1100; J2250; J2370; J2405; J3010; J7030

== ENCOUNTER 2023-03-19 07:44 | Outpatient (CLI) | payer BC, MEDICAID, SELFPAY ==
--- NOTE | 2023-03-19 07:48 | NM_ITS ---
WS: [id number] NUCLEAR MEDICINE HIDA SCAN CLINICAL INFORMATION: ABDOMINAL PAIN TECHNIQUE: Following intravenous administration of 7.7 mCi of technetium 99m mebrofenin, images of th e abdomen were obtained over the course of 60 minutes. Next, gallbladder ejection fraction was determ ined by obtaining preprandial and one-hour postprandial images of the gallbladder following oral wes stion of Ensure. COMPARISON: Ultrasound February 09, 2023 FINDINGS: Normal hepatic uptake at 5 minutes. Normal hepatic excretion. Gallbladder is visualized by 15 minutes . No evidence of acute cholecystitis. Common bile duct and small bowel activity is visualized. Gallbladder ejection fraction 74% within normal limits. No evidence of chronic cholecystitis. NM/NM hepatobiliary w phar* [id number] IMPRESSION: 1. No evidence of acute or chronic cholecystitis. 2. Gallbladder ejection fraction 74% within normal limits.
== END 2023-03-19 07:45 | disposition home or self-care (01) ==
PROVIDERS: PCP Family Medicine; Visit Provider Family Medicine
DX: R10.9 Unspecified abdominal pain (principal)
CPT/HCPCS: 78227; A9537

== ENCOUNTER → 2023-12-14 18:11 | Outpatient (BNVA) | payer SELFPAY | PROVIDERS: PCP Family Medicine; Visit Provider Family Medicine | DX: R10.30 Lower abdominal pain, unspecified (principal); K35.80 Unspecified acute appendicitis | CPT/HCPCS: 81000 ==

== ENCOUNTER 2023-12-15 09:49 | Emergency (ER) | payer SELFPAY ==
[2023-12-15 10:20] VITALS: BP 124/68; PULSE 65; RESP 18; TEMP 36.7; O2SAT 99; BMI 18.6
--- NOTE | 2023-12-15 10:49 | W.ED.ABDPA2 ---
HPI - Abdominal Pain General: Chief Complaint: Abdominal Pain Stated Complaint: abd pain Time Seen by Provider: 12/15/23 10:26 Source: patient Mode of arrival: ambulatory Limitations: no limitations History of Present Illness: Patient is a 28-year-old female presents to ED today for complaint of right lower abdominal pain. Patient was seen at urgent care yesterday and was told this could be acute appendicitis. She was scheduled for an outpatient ultrasound. She states this was scheduled for today but decided to come to the emergency department instead. Patient feels like most of her pain is to her right lower quadrant but radiates slightly superiorly and more medially to her suprapubic region. She does not complain of dysuria, frequency, urgency however does report worsening right lower quadrant pain with urination. Previous abdominal surgeries include a tubal ligation. Last menstrual cycle was 11/25. Patient is not been running fevers. She states she has felt nauseous but has not had any episodes of vomiting. Reportedly has not had a bowel movement in a few days. MD elicited complaint: abdominal pain Pertinent past history: none Onset (ago): day(s) Pain Consistency: constant Location: RLQ Severity: moderate Quality: stabbing and sharp Radiation: none Migration to: no migration Exacerbating factors: nothing Associated Symptoms: Reports nausea; Denies change in bowel habits, chills, diarrhea, dysuria, fever(s), hematochezia, melena and vomiting Related Data: Patient : No Review of Systems Const: Denies: fever(s), chills, body aches, fatigue or malaise Card: Denies: chest pain Resp: Denies: dyspnea GI: Reports: abdominal pain and nausea; Denies: vomiting, diarrhea, change in bowel habits, hematochezia or melena : Denies: flank pain, difficulty voiding, dysuria, urinary frequency, urinary urgency or urinary hesitancy Musc: Denies: neck pain, back pain, extremity pain or joint pain Skin/Breast: Denies: rash Neuro: Denies: headache(s), numbness in extremities, weakness in extremities, sensory changes or dizziness [facility] PFSH: Medical History (Updated 12/15/23 @ 12:36 by STEVE Miramontes) Generalized anxiety disorder Vapes nicotine containing substance Other stimulant dependence, in remission MDD (major depressive disorder), recurrent episode Social History Smoking and tobacco/nicotine status: current every day tobacco/nicotine user e-cigarettes E-Cigarette Details: vaporizer device Alcohol intake: current Alcohol intake frequency: holidays/special occasions only Alcohol type: wine Substance/Drug Use: never Current occupation: [employer] [place] [employer] department Female Reproductive History: Para: 3 Spontaneous abortions: Yes (1) Physical Exam Const: COMMON NORMALS: no acute distress, average body habitus, patient oriented x3, no limitations, healthy appearing, alert and well nourished Resp: COMMON NORMALS: normal respiratory effort and clear to auscultation bilaterally AUSCULTATION: clear to auscultation bilaterally Cardio: COMMON NORMALS: regular rate and regular rhythm RATE: regular rate RHYTHM: regular rhythm GI: COMMON NORMALS: Normal to inspection, nondistended, normoactive bowel sounds present, Soft to palpation, No hepatosplenomegaly present and no masses INSPECTION: Yes normal to inspection AUSCULTATION: Yes normoactive bowel sounds PALPATION: Yes Soft to palpation, Yes Tenderness to palpation present (GI) (suprapubic) Details: RLQ, Yes Guarding due to palpation present (GI), No Rigid due to palpation, Yes No hepatosplenomegaly present, Yes Rebound tenderness present and Yes Other GI palpation findings present (negative heel tap; equivocal psoas; positive Rovsing's) : COMMON NORMALS: Yes no CVA tenderness BLADDER/KIDNEY EXAM: Yes no CVA tenderness Back/Pelvis: COMMON NORMALS: no CVA tenderness Neuro: COMMON NORMALS: patient oriented x3 SENSORIUM/ORIENTATION: Yes alert Course Vital Signs: Vital signs: Vital Signs Temperature 98.0 F 12/15/23 10:20 Pulse Rate 65 12/15/23 10:20 Respiratory Rate 18 12/15/23 10:20 Blood Pressure 124/68 12/15/23 10:20 Pulse Oximetry 99 12/15/23 10:20 Oxygen Delivery Me thod Room Air 12/15/23 10:20 MDM - Abdominal Pain Medical Decision Making Patient here for right lower abdominal pain that seems to radiate medially. She arrives with stable vital signs. Blood work showing a normal white count. Her chemistry panel is unremarkable. is negative. UA appears uninfected. CT scan obtained given the clinical suspicion for appendicitis. CT scan showing findings consistent with a pelvic congestion syndrome. She did have an enhancing corpus luteal cyst on the left with a small amount of free pelvic fluid. Her appendix appeared normal. Incidental finding of an L5-S1 disc protrusion. She has no lower extremity discomfort at this time. When asked about symptoms consistent with a PCS she does report some dysuria and dysmenorrhea. She does not complain of dyspareunia. Patient states she will follow-up with her PCP in regards to CT findings. They can refer to gynecology if indicated. Return to ED precautions given. Lab Data 12/15/23 10:54 12/15/23 10:54 Labs/Radiology: Laboratory Results WBC 6.56 10^3/uL (3.29-11.43) 12/15/23 10:54 RBC 4.55 10^6/uL (3.85-5.65) 12/15/23 10:54 Hgb 14.30 g/dL (11.27-16.99) 12/15/23 10:54 Hct 41.9 % (36-47) 12/15/23 10:54 MCV 92.1 fl (85-98) 12/15/23 10:54 MCH 31.4 pg (27-33) 12/15/23 10:54 MCHC 34.1 g/dL (30-55) 12/15/23 10:54 RDW 12.2 % (12.1-15.1) 12/15/23 10:54 Plt Count 209 10^3/cmm (157-399) 12/15/23 10:54 MPV 9.3 fL (7.4-10.4) 12/15/23 10:54 Neut % (Auto) 73.1 % 12/15/23 10:54 Lymph % (Auto) 19.2 % 12/15/23 10:54 [place] % (Auto) 6.7 % 12/15/23 10:54 Eos % (Auto) 0.3 % 12/15/23 10:54 Baso % (Auto) 0.5 % 12/15/23 10:54 Neut # (Auto) 4.80 10^3/uL (1.8-7.7) 12/15/23 10:54 Lymph # (Auto) 1.3 10^3/uL (0.8-4.8) 12/15/23 10:54 [place] # (Auto) 0.4 10^3/uL (0.2-0.9) 12/15/23 10:54 Eos # (Auto) 0.0 10^3/uL (0.0-0.8) 12/15/23 10:54 Baso # (Auto) 0.0 10^3/uL (0.0-0.1) 12/15/23 10:54 Nucleated RBC % (auto) 0 % 12/15/23 10:54 Nucleated RBCs # 0.0 /100WBC 12/15/23 10:54 Sodium 138 mmol/L (136-145) 12/15/23 10:54 Potassium 3.9 mmol/L (3.5-5.1) 12/15/23 10:54 Chloride 101 mmol/L (98-107) 12/15/23 10:54 Carbon Dioxide 25 mmol/L (22-29) 12/15/23 10:54 Anion Gap 15.9 (5-19) 12/15/23 10:54 BUN 12 mg/dL (6-20) 12/15/23 10:54 Creatinine 0.8 mg/dL (0.5-0.9) 12/15/23 10:54 GFR Calculation 85.4 mL/min (90-130) L 12/15/23 10:54 Glucose 115 mg/dL (65-115) 12/15/23 10:54 Calculated Osmolality 287 mOsm/kg (285-295) 12/15/23 10:54 Calcium 9.2 mg/dL (8.5-10.5) 12/15/23 10:54 Total Bilirubin 0.5 mg/dL (0.15-1.2) 12/15/23 10:54 AST 29 U/L (0-32) 12/15/23 10:54 ALT 10 U/L (0-33) 12/15/23 10:54 Alkaline Phosphatase 68 U/L (35-105) 12/15/23 10:54 Total Protein 7.4 g/dL (6.6-8.7) 12/15/23 10:54 Albumin 4.3 g/dL (3.5-5.2) 12/15/23 10:54 Globulin 3.1 g/dL (1.3-4.6) 12/15/23 10:54 Lipase 25 U/L (13-60) 12/15/23 10:54 HCG, Qual Negative (Negative) 12/15/23 10:54 Urine Color Light yellow (Yellow) 12/15/23 11:31 Urine Appearance Clear (CLEAR) 12/15/23 11:31 Urine pH 7 (5-7) 12/15/23 11:31 Ur Specific [place] 1.005 (1.005-1.030) 12/15/23 11:31 Urine Protein Neg (Negative) 12/15/23 11:31 Urine Glucose (UA) Norm (Normal) 12/15/23 11:31 Urine Ketones 1+ (Negative) H 12/15/23 11:31 Urine Blood Neg (Negative) 12/15/23 11:31 Urine Nitrate Negative (Negative) 12/15/23 11:31 Urine Bilirubin Neg (Negative) 12/15/23 11:31 Urine Urobilinogen Norm mg/dL (Negative) 12/15/23 11:31 Ur Leukocyte Esterase Negative (Negative) 12/15/23 11:31 All radiology interpretation(s) finalized by discharge Discharge Plan Discharge Patient Disposition: Home Clinical Impression: Pelvic congestion syndrome, Corpus luteum cyst of left ovary Condition: Stable Prescriptions: No Action No Known Home Medications Discharge Orders: Discharge ED (Routine); Ordered 12/15/23 Ordered By: Nila Zamora Referrals: Edda Murillo MD [Primary Care Provider] - Activity Restrictions/Additional Instructions: As we discussed he stated he would like to follow-up with Dr. Murillo in regards to the CT findings today. I think this is reasonable. She can always refer her to gynecology if needed. Coding Level of Care Code ED Commercial Appraiser for Anand Rey
--- NOTE | 2023-12-15 10:56 | CT_ITS ---
WS: [id number] CT ABDOMEN PELVIS TECHNIQUE: Contrast-enhanced CT of the abdomen and pelvis with coronal and sagittal reformatted image s. CLINICAL INFORMATION: RLQ pain COMPARISON: None. DLP: 299.[address] scans at [facility] use at least one of these dose optimization techniques: automated e xposure control; mA and/or kV adjustment per patient size (includes targeted exams where dose is matc hed to clinical indication); or iterative reconstruction. FINDINGS: Mild diffuse fatty infiltration of the liver. Enlargement of the LEFT hepatic lobe. Normal spleen. Normal GE junction. Air-fluid level in the stomach. Normal pancreatic parenchymal enhancement . Adrenal glands are normal. Normal renal parenchymal enhancement. No hydronephrosis. Medullary nephr ocalcinosis unchanged from the prior ultrasound. Adrenal glands are normal. Small bilateral renal cys ts. No hydronephrosis in either kidney. Peripherally enhancing LEFT corpus luteum cyst measuring 1.8 cm. Heterogeneously enhancing retroverte d uterus with prominent pelvic varicosities can be seen with pelvic congestion syndrome in the appro riate clinical setting. Normal caliber abdominal aorta. Small fat-containing umbilical hernia. Small amount of free fluid in the pelvis. Low-lying cecum in the RIGHT lower quadrant with cecal constipati on. Appendix is difficult to visualize but appears decompressed. No evidence of acute appendicitis.0 Retroverted uterus. Tiny nodule RIGHT middle lobe. Mild disc bulging L4-L5 and L5-S1. LEFT paracentra l protrusion L5-S1 impinges the traversing LEFT S1 nerve root in the subarticular recess with mild ce ntral canal stenosis. This could followed up with MRI. IMPRESSION: 1. No evidence of acute appendicitis. 2. Retroverted heterogeneously enhancing uterus. Multiple pelvic varicosities which can be seen with pelvic congestion syndrome in the appropriate clinical setting. 3. Small amount of free fluid in the pelvis. 4. Peripherally enhancing LEFT corpus luteum cyst measuring 1.8 cm. 5. Low-lying cecum with cecal constipation in the RIGHT lower quadrant. 6. Medullary nephrocalcinosis unchanged since the prior ultrasound. 7. LEFT paracentral L5-S1 disc protrusion impinges the LEFT S1 nerve root in the subarticular recess with mild central canal stenosis. This could be further evaluated with MRI on an outpatient basis. Notified STEVE Miramontes at 12/15/2023 12:21 PM.
[2023-12-15 11:16] LABS: Basophils % 0.5 %; Eosinophils % 0.3 %; Hematocrit 41.9 % (36-47); Lymphocytes # 1.3 10^3/uL (0.8-4.8); Lymphocytes % 19.2 %; Mean Corpuscular HGB Conc 34.1 g/dL (30-55); Mean Corpuscular Hemoglobin 31.4 pg (27-33); Mean Corpuscular Volume 92.1 fl (85-98); Mean Platelet Volume 9.3 fL (7.4-10.4); Monocytes # 0.4 10^3/uL (0.2-0.9); Monocytes % 6.7 %; Neutrophils % 73.1 %; Nucleated Red Blood Cells % 0 %; Platelet Count 209 10^3/cmm (157-399); Red Blood Count 4.55 10^6/uL (3.85-5.65); Red Cell Distribution Width 12.2 % (12.1-15.1); White Blood Count 6.56 10^3/uL (3.29-11.43)
[2023-12-15 11:31] LABS: Alanine Aminotransferase 10 U/L (0-33); Albumin Level 4.3 g/dL (3.5-5.2); Alkaline Phosphatase 68 U/L (35-105); Anion Gap 15.9 (5-19); Aspartate Amino Transferase 29 U/L (0-32); Blood Urea Nitrogen 12 mg/dL (6-20); Calcium 9.2 mg/dL (8.5-10.5); Carbon Dioxide 25 mmol/L (22-29); Chloride 101 mmol/L (98-107); Creatinine Clr Calc Pharmacy 80.2695; Globulin 3.1 g/dL (1.3-4.6); Glomerular Filtration Rate 85.4 mL/min (90-130); Glucose 115 mg/dL (65-115); Lipase 25 U/L (13-60); Osmolality Calculated 287 mOsm/kg (285-295); Potassium 3.9 mmol/L (3.5-5.1); Sodium 138 mmol/L (136-145); Total Bilirubin 0.5 mg/dL (0.15-1.2); Total Protein 7.4 g/dL (6.6-8.7)
[2023-12-15 11:43] LABS: HCG, Serum Qual Negative (Negative)
[2023-12-15 11:44] LABS: Add Urine Microscopic? NO; Charge for UA Resulting for Rev
[2023-12-15] MEDS: iohexol 350 mg/mL 500 mL Btl (per mL) IV (11:51)
[2023-12-15 11:53] LABS: Urine Color Light yellow (Yellow)
[2023-12-15 11:54] LABS: Bilirubin Urine Neg (Negative); Blood Urine Neg (Negative); Glucose Urine UA Norm (Normal); Ketones Urine 1+ (Negative); Leukocyte Esterase Urine Negative (Negative); Nitrate Urine Negative (Negative); Protein Urine Neg (Negative); Specific Gravity, Urine 1.005 (1.005-1.030); Urine Appearance Clear (CLEAR); Urobilinogen Urine Norm (Negative); pH Urine 7 (5-7)
== END 2023-12-15 13:22 | disposition home or self-care (01) ==
PROVIDERS: Emergency Provider Physician Assistant; PCP Family Medicine
DX: N94.89 Other specified conditions associated with female genital organs and menstrual cycle (principal); N83.12 Corpus luteum cyst of left ovary; F17.290 Nicotine dependence, other tobacco product, uncomplicated
CPT/HCPCS: 36415; 74177; 80053; 81003; 83690; 84703; 85025; 99285; Q9967

== ENCOUNTER 2025-01-19 07:35 | Inpatient (IN) | payer BC, SELFPAY ==
[2025-01-19] VITALS (44 sets, daily range): BP systolic 91–134; BP diastolic 55–94; PULSE 37–84; RESP 14–16; TEMP 36.1–37.3; O2SAT 90–100; BMI 18.1
[2025-01-19 08:08] LABS: Basophils # 0.1 10^3/uL (0.0-0.1); Basophils % 0.7 %; Eosinophils # 0.1 10^3/uL (0.0-0.8); Eosinophils % 1.2 %; Hematocrit 41.8 % (36-47); Lymphocytes # 1.9 10^3/uL (0.8-4.8); Lymphocytes % 20.6 %; Mean Corpuscular HGB Conc 35.4 g/dL (30-55); Mean Corpuscular Hemoglobin 31.2 pg (27-33); Mean Corpuscular Volume 88.2 fl (85-98); Mean Platelet Volume 9.2 fL (7.4-10.4); Monocytes # 0.5 10^3/uL (0.2-0.9); Monocytes % 5.5 %; Neutrophils % 71.6 %; Nucleated Red Blood Cells % 0 %; Platelet Count 335 10^3/cmm (157-399); Red Blood Count 4.74 10^6/uL (3.85-5.65); Red Cell Distribution Width 11.9 % (12.1-15.1); White Blood Count 9.22 10^3/uL (3.29-11.43)
--- NOTE | 2025-01-19 08:25 | PC.NURSE ---
96 hour hold rights read and reviewed with patient. Patient appears to be drowsy at this time, but she is oriented to person and place and time. Patient verbalized understandings and copy of rights given to patient.
[2025-01-19 08:32] LABS: HCG, Serum Qual Negative (Negative)
[2025-01-19 08:33] LABS: Alanine Aminotransferase 8 U/L (0-33); Albumin Level 4.1 g/dL (3.5-5.2); Alkaline Phosphatase 57 U/L (35-105); Anion Gap 17.8 (5-19); Aspartate Amino Transferase 15 U/L (0-32); Blood Urea Nitrogen 9 mg/dL (6-20); Calcium 8.7 mg/dL (8.5-10.5); Carbon Dioxide 16 mmol/L (22-29); Chloride 103 mmol/L (98-107); Creatinine Clr Calc Pharmacy 78.3642; Globulin 2.8 g/dL (1.3-4.6); Glomerular Filtration Rate 84.8 mL/min (90-130); Glucose 229 mg/dL (65-115); Osmolality Calculated 282 mOsm/kg (285-295); Potassium 3.8 mmol/L (3.5-5.1); Sodium 133 mmol/L (136-145); Total Bilirubin 0.2 mg/dL (0.15-1.2); Total Protein 6.9 g/dL (6.6-8.7)
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
[2025-01-19 08:34] LABS: Acetaminophen < 5.0 ug/mL (10-30); Alcohol Level < 10 mg/dL (0-10); Salicylate < 0.3 mg/dL (3-10)
[2025-01-19] MEDS: sodium chloride 0.9% 1,000 ML 999 ML IV (09:00)
[2025-01-19 09:16] LABS: Bacteria Urine None Seen /hpf; Hyaline Casts Urine 14.47 /lpf; Squamous Epithelial Cell Urine 0-5 /hpf (0-5); WBC Urine 0-5 /hpf (0-5)
--- NOTE | 2025-01-19 09:17 | PC.NURSE ---
Poison control contacted at 0800 by this nurse.
[2025-01-19 09:29] LABS: Protein Urine 3+ (Negative); Urine Appearance Clear (CLEAR); Urine Color Yellow (Yellow); pH Urine 6.5 (5-7)
[2025-01-19 09:30] LABS: Add Urine Culture? No; Add Urine Microscopic? YES; Bilirubin Urine Neg (Negative); Blood Urine Neg (Negative); Fine Granular Casts Urine 0-4 /lpf; Glucose Urine UA Trace (Normal); Ketones Urine Negative (Negative); Leukocyte Esterase Urine Negative (Negative); Nitrate Urine Negative (Negative); UA Slide Review UA Slide Review Perf; Urobilinogen Urine Norm (Negative)
--- NOTE | 2025-01-19 12:41 | ECG_ITS ---
[facility] Date: 2025-01-19 Pat Name: Ayde Dunbar Department: Room: Gender: Female Qc Lab Technician: : 1995 Requested By: Wilfredo Martinez Order Number: [id number] Piotr MD: Eleanor Dunbar M.D. Measurements Intervals [place] Rate: 39 P: 142 WI: 139 QRS: 143 QRSD: 88 T: 149 QT: 464 QTc: 377 Interpretive Statements SINUS BRADYCARDIA LEFT POSTERIOR FASCICULAR BLOCK [QRS AXIS > 109, INFERIOR Q] Nonspecific T wave changes CRITICAL TEST RESULT No previous ECG available for comparison Electronically Signed On 01-21-2025 13:11:53 CDT by Eleanor Dunbar M.D. [id number]
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
[2025-01-19] MEDS: lactated ringers 1,000 ML 75 ML IV (19:57)
[2025-01-20] VITALS (17 sets, daily range): BP systolic 87–108; BP diastolic 51–65; PULSE 49–96; RESP 12–16; TEMP 36.8–37.4; O2SAT 90–99
[2025-01-20 03:52] LABS: Basophils % 0.4 %; Eosinophils # 0.1 10^3/uL (0.0-0.8); Eosinophils % 1.2 %; Hematocrit 38.5 % (36-47); Lymphocytes # 1.3 10^3/uL (0.8-4.8); Lymphocytes % 13.1 %; Mean Corpuscular HGB Conc 33.8 g/dL (30-55); Mean Corpuscular Hemoglobin 31.3 pg (27-33); Mean Corpuscular Volume 92.8 fl (85-98); Mean Platelet Volume 9.2 fL (7.4-10.4); Monocytes # 0.6 10^3/uL (0.2-0.9); Monocytes % 6.7 %; Neutrophils # 7.43 10^3/uL (1.8-7.7); Neutrophils % 78.2 %; Nucleated Red Blood Cells % 0 %; Platelet Count 218 10^3/cmm (157-399); Red Blood Count 4.15 10^6/uL (3.85-5.65); White Blood Count 9.51 10^3/uL (3.29-11.43)
[2025-01-20 04:18] LABS: Magnesium 1.8 mg/dL (1.7-2.3)
[2025-01-20 04:19] LABS: Alanine Aminotransferase 9 U/L (0-33); Albumin Level 3.7 g/dL (3.5-5.2); Alkaline Phosphatase 49 U/L (35-105); Anion Gap 13.9 (5-19); Aspartate Amino Transferase 14 U/L (0-32); Blood Urea Nitrogen 8 mg/dL (6-20); Calcium 8.6 mg/dL (8.5-10.5); Carbon Dioxide 21 mmol/L (22-29); Chloride 105 mmol/L (98-107); Creatinine Clr Calc Pharmacy 89.8991; Globulin 2.5 g/dL (1.3-4.6); Glomerular Filtration Rate 98.9 mL/min (90-130); Glucose 75 mg/dL (65-115); Osmolality Calculated 279 mOsm/kg (285-295); Potassium 3.9 mmol/L (3.5-5.1); Sodium 136 mmol/L (136-145); Total Bilirubin 0.4 mg/dL (0.15-1.2); Total Protein 6.2 g/dL (6.6-8.7)
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
--- NOTE | 2025-01-20 09:20 | P.PN_ITS ---
Subjective 2 Subjective: She is feeling better today. She is awake and alert. No nausea or vomiting. No abdominal discomfort. No chest pain pressure. Bradycardia resolved. Vitals/I&O/Wt Last Vital Signs Temp 99.1 F 01/20/25 08:00 Pulse 74 01/20/25 08:00 Resp 12 01/20/25 08:00 BP 105/63 01/20/25 08:00 Pulse Ox 99 01/20/25 08:00 O2 Del Method Room Air 01/20/25 08:00 01/19/25 01/20/25 01/20/25 22:59 06:59 14:59 Intake Total 480 / 1480 0 / 1480 Balance 480 / 1480 0 / 1480 Weight last 48 hrs Weight 45.5 kg Weight 44.906 kg Weight 44.452 kg Physical Exam 2 Const: COMMON NORMALS: patient oriented x3 and alert GENERAL APPEARANCE: c ooperative ORIENTATION/CONSCIOUSNESS: Yes Other orientation findings (Groggy) HENMT: COMMON NORMALS: oropharynx normal Neck/C-Spine: COMMON NORMALS: no JVD Resp: COMMON NORMALS: normal respiratory effort and clear to auscultation bilaterally AUSCULTATION: clear to auscultation bilaterally Cardio: COMMON NORMALS: no JVD, regular rhythm, S1 normal heart sound present, S2 normal heart sound present and No murmurs present (Cardio) RHYTHM: regular rhythm HEART SOUNDS: S1 normal heart sound present and S2 normal heart sound present GI: COMMON NORMALS: Normal to inspection, nondistended, normoactive bowel sounds present, Soft to palpation and non-tender PALPATION: Yes Soft to palpation Extremity: COMMON NORMALS: no joint enlargement and no pedal edema Neuro: COMMON NORMALS: patient oriented x3 and moves all extremities S ENSORIUM/ORIENTATION: Yes alert Skin: COMMON NORMALS: no rashes or lesions noted GENERAL SKIN EXAM: no rashes or lesions noted Data 01/20/25 03:23 01/20/25 03:23 A&P Assessment and plan (1) Medication overdose: Overnight with bradycardia which has resolved. Maintaining blood pressure and oxygenation. Some lethargy yesterday, but today awake and alert, without nausea and vomiting. Being assessed by psychiatry. May transfer over to neuropsychiatric unit to continue assessment and treatment of depression, following suicide attempt. Reviewed vitals, CBC, CMP, no change in liver enzymes. Renal function normal. Reviewed psychiatry note, discussed with psychiatrist. DC IV fluid. Orders entered for transfer to FLOOR CARE TECHNICIAN. (2) Suicide attempt: Pending psychiatric evaluation and admission. Placed on 96-hour hold Plan Depression: Severe decompensation of depression with suicide attempt. Borderline personality disorder PTSD PDMP PDMP Reviewed: Not Reviewed Attestations 2 Medical Necessity Statement*: Continue admission for assessment and management of depression following medication overdose in a suicide attempt. and High MDM includes amount and/or complexity of data reviewed/ordered [ previous or external records, resulted lab(s)/test(s), ordered lab(s)/test(s) and other healthcare professional discussion] as documented Diagnoses Medication overdose T50.901A Suicide attempt T14.91XA
--- NOTE | 2025-01-20 10:05 | PC.NURSE ---
Dr. Minor and Dr. Oakley to bedside. Transfer orders to NPU entered. Left AC IV removed, classroom monitor removed. Will transfer to NPU when bed available.
--- NOTE | 2025-01-20 12:56 | PC.NURSE ---
Poison control given update on current patient status. States that they will close the case but if any further needs arise please consult poison control.
--- NOTE | 2025-01-20 16:08 | PC.NURSE ---
Report given to Gemma on NPU.
--- NOTE | 2025-01-20 16:11 | PC.NURSE ---
Notified Life partner of patient transfer to stress unit room 126-2
--- NOTE | 2025-01-20 16:36 | PC.NURSE ---
Transferred to NPU via wheelchair with security as escort.
[2025-01-20] MEDS: nicotine 2 mg Gum BUCCAL (17:04)
[2025-01-20] MEDS: acetaminophen 325 mg Tablet 650 MG PO (17:04)
[2025-01-21 06:00] VITALS: BP 86/49; PULSE 92; RESP 16; TEMP 37.1; O2SAT 97
[2025-01-21] MEDS: nicotine 2 mg Gum BUCCAL ×4 (08:20→20:35)
--- NOTE | 2025-01-21 09:00 | P.NPUPN_ITS ---
Subjective NPU 2 Subjective: 29-year-old female admitted after overdo se on tizanidine hydroxyzine and Effexor. She had reported having significant somatic discomfort that were often tied into her anxiety, anger, and depression. She had reported no change in her psychotropic medications in several months. She had stated that she had hoped to receive counseling soon. She reports that she was still depressed but stated that she was feeling better. She had acknowledged having recent losses including the of her aunt and stated that she was having a difficult time with managing her emotions recently. She denied any history of lobo. She did not endorse any history of psychosis. She had reported that she struggled with poor frustration tolerance. She had also complained of a lack of energy and frequent episodes of crying. She had endorsed a history of Effexor withdrawal symptoms and stated that she wished to continue this medication. Mental Status Exam 2 MSE Comments: Patient is a thin white female who appeared her stated age with a disheveled appearance lying in bed today. Her speech was normal in range, volume and tone. She had fleeting eye contact. There was evidence of psychomotor retardation. Her mood was described as depressed. Her affect was restricted in range and mood congruent. Her thought process was linear,logical and goal- directed. Her thought content revealed suicidal ideation as she acknowledged having overdosed with suicidal intent. She denied any auditory or visual hallucinations. She did not appear to be responding to internal stimuli. She was alert and oriented to person and place only. Her recent and remote memory appeared poor at this time. Her insight is improving. Her judgment was poor. Her impulse control appeared limited. Vitals/I&O/Wt Last Vital Signs Temp 98.7 F 01/21/25 06:00 Pulse 92 01/21/25 06:00 Resp 16 01/21/25 06:00 BP 86/49 01/21/25 06:00 Pulse Ox 97 01/21/25 06:00 O2 Del Method Room Air 01/20/25 16:38 Weight last 48 hrs Weight 45.541 kg Weight 45.5 kg Weight 44.906 kg Data NPU 01/20/25 03:23 01/20/25 03:23 A&P Assessment and plan (1) MDD (major depressive disorder), recurrent episode: (2) Medication overdose: (3) Suicide attempt: (4) Borderline personality disorder: (5) Suicidal ideation: (6) PTSD (post-traumatic stress disorder): Plan #1.? Engage patient in individual milieu and group therapy. #2?? Restart Effexor XR 75mg daily with plan for increase in 1-2 days. #3??? Begin setup of outpatient psychotherapy services and medication management on outpatient basis. #4?? TO-15 minute checks? #5?? Will attempt to gather collateral information PDMP PDMP Reviewed: Not Reviewed Involuntary Hold Information 2 Hold Status: Legal Status: 96 Hour Hold Date/Time Hold Expires: 01/25/25 @ 0800 96 Hour Hold: 96 Hour Involuntary Admission: Yes Attestations NPU 2 Medical Necessity Statement*: Inpatient psychiatric hospitalization is medically necessary and the clinically appropriate intervention at this time. We will initiate medications and make changes as indicated. Patient's likely length of stay 4-6 days. Coding Level of Care Code Acute Code for [facility] Fwd Diagnoses MDD (major depressive disorder), recurrent episode F33.9 Medication overdose T50.901A Suicide attempt T14.91XA Borderline personality disorder F60.3 Suicidal ideation R45.851 PTSD (post-traumatic stress disorder) F43.10
[2025-01-21] MEDS: venlafaxine ER (24HR) 75 mg Capsule PO (09:28)
[2025-01-21 14:00] VITALS: BP 108/72; PULSE 86; RESP 16; TEMP 36.7; O2SAT 97
[2025-01-21 20:09] VITALS: BP 99/65; PULSE 76; RESP 16; TEMP 36.5; O2SAT 99
[2025-01-21] MEDS: trazodone 50 mg Tablet PO (22:08)
[2025-01-21] MEDS: hyDROXYzine 25 mg Capsule 50 MG PO (22:08)
[2025-01-22 06:00] VITALS: BP 107/68; PULSE 79; RESP 16; TEMP 36.8; O2SAT 98; BMI 17.6
[2025-01-22] MEDS: hyDROXYzine 25 mg Capsule 50 MG PO (08:24)
[2025-01-22] MEDS: venlafaxine ER (24HR) 75 mg Capsule PO (08:24)
[2025-01-22] MEDS: nicotine 2 mg Gum BUCCAL ×2 (08:35→12:38)
--- NOTE | 2025-01-22 10:39 | PC.NURSE ---
Pt in dayroom twirling around and staggered to the ground. Pt was evaluated and no injuries or concern noted. Pt was educated about safety to which pt replied I don't know why, I am just so hyper today and can't calm down .
[2025-01-22] MEDS: OLANZapine 5 mg ODT PO (12:41)
[2025-01-22 14:00] VITALS: BP 96/62; PULSE 80; RESP 16; TEMP 36.8; O2SAT 99
--- NOTE | 2025-01-22 15:13 | P.NPUPN_ITS ---
Subjective NPU 2 Subjective: 29-year-old female admitted after overdo se on tizanidine hydroxyzine and Effexor. Patient had denied having suicidal thoughts currently. She had reported having significant anxiety. She had stated that she had chronic problems with sustaining attention throughout her life and reported being extremely disorganized. She had also reported a past history of poor impulse control. She had reported that she struggled with caring for her family in her home as she reported that she was also frequently bored. She had reported struggles with oral intake in the past but reported no history of eating disorder. She had been compliant and redirectable on the milieu. She denied side effects from medication. Mental Status Exam 2 MSE Comments: Patient is a thin white female who appeared her stated age with a disheveled appearance lying in bed today. Her speech was normal in range, volume and tone. She had fleeting eye contact. She was fidgety during her interview. Her mood was described as anxious. Her affect was restricted in range and mood congruent. Her thought process was linear,logical and goal-directed. Her thought content revealed suicidal ideation as she acknowledged having overdosed with suicidal intent. She denied any auditory or visual hallucinations. She did not appear to be responding to internal stimuli. She was alert and oriented to person and place only. Her recent and remote memory appeared poor at this time. Her insight is improving. Her judgment was poor. Her impulse control appeared limited. Attention span was poor. Vitals/I&O/Wt Last Vital Signs Temp 98.3 F 01/22/25 14:00 Pulse 80 01/22/25 14:00 Resp 16 01/22/25 14:00 BP 96/62 01/22/25 14:00 Pulse Ox 99 01/22/25 14:00 O2 Del Method Room Air 01/22/25 14:00 Weight last 48 hrs Weight 43.715 kg Weight 45.541 kg Data NPU 01/20/25 03:23 01/20/25 03:23 A&P Assessment and plan (1) MDD (major depressive disorder), recurrent episode: (2) Medication overdose: (3) Suicide attempt: (4) Borderline personality disorder: (5) Suicidal ideation: (6) PTSD (post-traumatic stress disorder): Plan #1.? Engage patient in individual milieu and group therapy. #2?? Restart Effexor XR 75mg daily with plan for increase in 1-2 days. #3??? Begin setup of outpatient psychotherapy services and medication management on outpatient basis. #4?? TO-15 minute checks? #5?? Will attempt to gather collateral information #6 ADHD Rating scale to be completed. PDMP PDMP Reviewed: Not Reviewed Involuntary Hold Information 2 Hold Status: Legal Status: 96 Hour Hold Date/Time Hold Expires: 01/25/25 @ 0800 96 Hour Hold: 96 Hour Involuntary Admission: Yes Attestations NPU 2 Medical Necessity Statement*: Inpatient psychiatric hospitalization is medically necessary and the clinically appropriate intervention at this time. We will initiate medications and make changes as indicated. Patient's likely length of stay 4-6 days. Coding Level of Care Code Acute Code for g Fwd Diagnoses MDD (major depressive disorder), recurrent episode F33.9 Medication overdose T50.901A Suicide attempt T14.91XA Borderline personality disorder F60.3 Suicidal ideation R45.851 PTSD (post-traumatic stress disorder) F43.10
[2025-01-22 21:59] VITALS: BP 89/58; PULSE 80; RESP 16; TEMP 36.7; O2SAT 98
[2025-01-23 06:00] VITALS: BP 93/60; PULSE 70; RESP 16; TEMP 36.8; O2SAT 99
[2025-01-23] MEDS: nicotine 2 mg Gum BUCCAL (08:07)
[2025-01-23] MEDS: venlafaxine ER (24HR) 75 mg Capsule PO (08:07)
[2025-01-23] MEDS: hyDROXYzine 25 mg Capsule 50 MG PO (08:08)
[2025-01-23] MEDS: nicotine 4 mg lozenge MUCOUS MEM (12:43)
[2025-01-23] MEDS: OLANZapine 5 mg ODT PO (13:15)
[2025-01-23 14:00] VITALS: BP 95/61; PULSE 67; RESP 18; TEMP 37.1; O2SAT 96
--- NOTE | 2025-01-23 16:47 | P.NPUPN_ITS ---
Subjective NPU 2 Subjective: 29-year-old female admitted after overdo se on tizanidine hydroxyzine and Effexor. Patient had reported that she felt ready to go home soon. She had appeared more redirectable and less irritable. She had continued to support having some strong issues with staying on task and stated that she would like medication potentially to help her. She had reported having history of anxiety. She had also reported having struggles with maintaining weight due to her abdominal issues. She had reported a history of poor frustration tolerance. She had reported that her mood had been better and stated that she was willing to consider counseling on a weekly basis if necessary. Mental Status Exam 2 MSE Comments: Patient is a thin white female who appeared her stated age with a disheveled appearance lying in bed today. Her speech was normal in range, volume and tone. She had fleeting eye contact. She was fidgety during her interview. Her mood was described as better. Her affect was intense and anxous. Her thought process was linear,logical and goal-directed. Her thought content revealed no suicidal ideation today. She denied any auditory or visual hallucinations. She did not appear to be responding to internal stimuli. She was alert and oriented to person and place only. Her recent and remote memory was intact. Her insight is improving. Her judgment was fair. Her impulse control appeared poor. Attention span was poor. Vitals/I&O/Wt Last Vital Signs Temp 98.3 F 01/23/25 06:00 Pulse 70 01/23/25 06:00 Resp 16 01/23/25 06:00 BP 93/60 01/23/25 06:00 Pulse Ox 99 01/23/25 06:00 O2 Del Method Room Air 01/23/25 06:00 Weight last 48 hrs Weight 44.543 kg Weight 43.715 kg Data NPU 01/20/25 03:23 01/20/25 03:23 A&P Assessment and plan (1) MDD (major depressive disorder), recurrent episode: (2) Attention-deficit hyperactivity disorder, unspecified type: (3) Medication overdose: (4) Suicide attempt: (5) Borderline personality disorder: (6) Suicidal ideation: (7) PTSD (post-traumatic stress disorder): Plan #1.? Engage patient in individual milieu and group therapy. #2??Continue Effexor XR 75mg in am. Add Strattera 18mg daily to target adhd symptoms. #3??? Begin setup of outpatient psychotherapy services and medication management on outpatient basis. #4?? TO-15 minute checks? #5?? Will attempt to gather collateral information #6 ADHD Rating scale completed with patient showing significant evidence of adhd by history. PDMP PDMP Reviewed: Not Reviewed Involuntary Hold Information 2 Hold Status: Legal Status: 96 Hour Hold Date/Time Hold Expires: 01/25/25 @ 0800 96 Hour Hold: 96 Hour Involuntary Admission: Yes Attestations NPU 2 Medical Necessity Statement*: Inpatient psychiatric hospitalization is medically necessary and the clinically appropriate intervention at this time. We will initiate medications and make changes as indicated. Patient's likely length of stay 1-2 days. Coding Level of Care Code Acute Code for g Fwd Diagnoses MDD (major depressive disorder), recurrent episode F33.9 Attention-deficit hyperactivity disorder, unspecified type F90.9 Medication overdose T50.901A Suicide attempt T14.91XA Borderline personality disorder F60.3 Suicidal ideation R45.851 PTSD (post-traumatic stress disorder) F43.10
[2025-01-23] MEDS: ATOMOXETINE 18 MG 1 EACH PO (18:16)
[2025-01-23 19:52] VITALS: BP 98/62; PULSE 64; RESP 16; O2SAT 97
[2025-01-24 06:00] VITALS: BP 90/55; PULSE 69; RESP 16; O2SAT 98
[2025-01-24] MEDS: nicotine 2 mg Gum BUCCAL ×2 (08:08→11:49)
[2025-01-24] MEDS: venlafaxine ER (24HR) 75 mg Capsule PO (08:08)
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
[2025-01-24 12:44] VITALS: BP 90/55; PULSE 69; RESP 16; O2SAT 98
[2025-01-24 12:56] VITALS: BP 90/55; PULSE 69; RESP 16; TEMP 37.1; O2SAT 98
--- NOTE | 2025-01-24 15:01 | PC.NURSE ---
verified pt phone number [phone]
== END 2025-01-24 15:03 | disposition home or self-care (01) | DRG 918 ==
LOC: ER 11:12 → ICU 14:25 → NP 01-20 16:33
PROVIDERS: Internal Medicine; Admitting Provider Internal Medicine; Emergency Provider Family Medicine; PCP Family Medicine; Visit Provider Psychiatry & Neurology Psychiatry
DX: T42.8X2A Poisoning by antiparkinsonism drugs and other central muscle-tone depressants, intentional self-harm, initial encounter (principal); F33.9 Major depressive disorder, recurrent, unspecified; R00.1 Bradycardia, unspecified; Y92.9 Unspecified place or not applicable; T43.212A Poisoning by selective serotonin and norepinephrine reuptake inhibitors, intentional self-harm, initial encounter; T43.592A Poisoning by other antipsychotics and neuroleptics, intentional self-harm, initial encounter; F17.290 Nicotine dependence, other tobacco product, uncomplicated; F60.3 Borderline personality disorder; F43.10 Post-traumatic stress disorder, unspecified; Z91.51 Personal history of suicidal behavior
CPT/HCPCS: 36415; 80053; 80307; 81001; 83735; 84703; 85025; 93005; 97150; 97165; 99285; J7030; J7120; J9999

== ENCOUNTER 2025-02-21 14:26 | Emergency (ER) | payer BC, MEDICAID, SELFPAY ==
[2025-02-21 14:26] VITALS: BMI 19.2
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
--- NOTE | 2025-02-21 14:37 | PC.NURSE ---
pt placed in c collar
[2025-02-21] MEDS: methocarbamol 750 mg Tablet 1500 MG PO (15:19)
[2025-02-21] MEDS: naproxen 500 mg Tablet PO (15:19)
== END 2025-02-21 15:32 | disposition home or self-care (01) ==
PROVIDERS: Emergency Provider Emergency Medicine; PCP Family Medicine
DX: S16.1XXA Strain of muscle, fascia and tendon at neck level, initial encounter (principal); V89.2XXA Person injured in unspecified motor-vehicle accident, traffic, initial encounter; F17.290 Nicotine dependence, other tobacco product, uncomplicated
CPT/HCPCS: 72125; 99284; J9999

== ENCOUNTER → 2025-03-21 08:58 | Outpatient (BNVA) | payer OTHER, SELFPAY | PROVIDERS: PCP Family Medicine; Visit Provider Nurse Practitioner | DX: F90.9 Attention-deficit hyperactivity disorder, unspecified type (principal); F41.1 Generalized anxiety disorder | CPT/HCPCS: 80061; 83036 ==